=== PATIENT | male | born 1950 | race Caucasian/White ===

== ENCOUNTER 2016-10-18 11:44 | Outpatient (CLI) | payer MEDICARE, OTHER | END 2016-10-18 11:45 | disposition home or self-care (01) | LOC: LAB 11:44 | PROVIDERS: ATTEND Internal Medicine | DX: R76.8 Other specified abnormal immunological findings in serum (principal) | CPT/HCPCS: 36415; 86803 ==

== ENCOUNTER 2016-11-26 08:09 | Day surgery (SDC) | payer MEDICARE, OTHER ==
[2016-11-26] MEDS ORDERED: MIDAZOLAM 2 MG/2 ML VIAL IVP ONE (09:39)
[2016-11-26] MEDS ORDERED: fentaNYL 100 MCG/2 ML VIAL IVP ONE (09:39)
[2016-11-26] MEDS ORDERED: LACTATED RINGERS 1,000 ML IV ONE ×3 (09:56→10:25)
[2016-11-26 11:47] VITALS: BP 107/82
== END 2016-11-26 08:10 | disposition home or self-care (01) ==
LOC: SDS 08:09
PROVIDERS: ATTEND Surgery
PROC: 0DBM8ZX Excision of Descending Colon, Via Natural or Artificial Opening Endoscopic, Diagnostic (ICD-10-PCS; principal; 2016-11-26 09:15)
PROC: 0DB58ZX Excision of Esophagus, Via Natural or Artificial Opening Endoscopic, Diagnostic (ICD-10-PCS; 2016-11-26 09:15)
DX: K29.70 Gastritis, unspecified, without bleeding (principal); K44.9 Diaphragmatic hernia without obstruction or gangrene; K57.30 Diverticulosis of large intestine without perforation or abscess without bleeding; D12.4 Benign neoplasm of descending colon; Z87.891 Personal history of nicotine dependence
CPT/HCPCS: 43239; 45380; J7120

== ENCOUNTER 2022-06-05 13:22 | Outpatient (CLI) | payer MEDICARE, OTHER ==
--- NOTE | 2022-06-05 15:06 | XRAY Report ---
PROCEDURE: Knee Standing BILAT INDICATIONS: KNEE TECHNIQUE: 2 views of the right knee, and 2 views of the left knee. COMPARISON: None. FINDINGS: Bones: No acute fracture or dislocation. There is moderate right and severe left femorotibial compar tment narrowing. No suspicious bony lesions. Medial compartment osteophytes are present, slightly lar ariela on the left than on the right. Soft tissues: There is chondrocalcinosis bilaterally. IMPRESSION: Moderate bilateral osteoarthritis, slightly more severe on the left. Reviewed by: Emilie Guardado MD on 06/05/2022 3:05 PM PDT Approved by: Emilie Guardado MD on 06/05/2022 3:05 PM PDT Station ID: [id number]
== END 2022-06-05 13:23 | disposition home or self-care (01) ==
LOC: DI 13:22
PROVIDERS: ATTEND Physician Assistant
DX: M17.0 Bilateral primary osteoarthritis of knee (principal)

== ENCOUNTER 2024-03-02 09:33 | Observation (INO) ==
[2024-03-02 10:56] LABS: BASOPHILS # (AUTO) 0.1 10^3/uL (0.0-0.1); BASOPHILS % (AUTO) 0.6 %; EOSINOPHILS # (AUTO) 0.2 10^3/uL (0.0-0.7); HCT - HEMATOCRIT 46.8 % (42.0-52.0); HGB - HEMOGLOBIN 15.7 g/dL (14.0-18.0); LYMPHOCYTES # (AUTO) 1.9 10^3/uL (1.5-3.5); LYMPHOCYTES % (AUTO) 20.2 %; MEAN CORPUSCULAR HEMOGLOBIN 31.2 pg (27.0-31.0); MEAN CORPUSCULAR HGB CONC 33.5 g/dL (32.0-36.0); MEAN CORPUSCULAR VOLUME 92.9 fL (80.0-94.0); MEAN PLATELET VOLUME 9.9 fL (7.4-11.4); MONOCYTES # (AUTO) 0.6 10^3/uL (0.0-1.0); MONOCYTES % (AUTO) 6.9 %; NEUTROPHILS # (AUTO) 6.5 10^3/uL (1.5-6.6); NEUTROPHILS % (AUTO) 70.1 %; PLT - PLATELET COUNT 322 10^3/uL (130-450); RED BLOOD COUNT 5.04 10^6/uL (4.70-6.10); RED CELL DISTRIBUTION WIDTH 14.9 % (12.0-15.0); WHITE BLOOD COUNT 9.3 x10^3/uL (4.8-10.8)
[2024-03-02 11:10] LABS: ALBUMIN 4.6 g/dL (3.2-5.5); ALBUMIN/GLOBULIN RATIO 1.2 (1.0-2.2); BILIRUBIN,TOTAL 0.6 mg/dL (0.2-1.0); CALCIUM 9.8 mg/dL (8.5-10.3); CREATININE 0.9 mg/dL (0.6-1.3); MAGNESIUM 2.2 mg/dL (1.7-2.3); POTASSIUM 3.9 mmol/L (3.5-4.5); TOTAL PROTEIN 8.3 g/dL (6.4-8.9)
[2024-03-02 11:24] LABS: THYROID STIMULATING HORMONE 1.93 uIU/mL (0.34-5.60)
--- NOTE | 2024-03-02 11:31 | ED Physician Documentation ---
PD HPI DYSPNEA Stated complaint Stated Complaint: HIGH BP Chief complaint Chief Complaint: Cardiac History obtained from History obtained from: Patient and Family History of Present Illness Timing - onset: How many days ago (He checks his blood pressure once or twice daily and has noted heart rate being mild tachycardia with irregularity over the last 5 or 6 days.) Timing - onset during: Rest (he has noted the faster HR and irregular when rested, as that is when took BP. But he did feel more easily fatigued with activity the past 5-6 days. ) Timing - duration: Days Timing - details: Gradual onset, Still present and Waxing and waning (HR faster at times, up to 150-160 at times, but mostly in the 100-130 range. ) Inciting event(s): No URI Improved by: Rest Worsened by: Exertion Associated symptoms: No Fever, Cough, Wheezing or Bilateral edema Similar symptoms before: Has not had sx before Recently seen: Not recently seen Review of Systems Constitutional Denies: Fever, Chills or Weight loss Meds/Allgy Home Medications Ambulatory Orders Medication Instructions Recorded Confirmed hydrochlorothiazide 12.5 mg tablet 12.5 mg PO DAILY PRN diastolic >100 03/02/24 03/02/24 triamcinolone acetonide 55 mcg 1 spray intranasal QPM 03/02/24 03/02/24 nasal spray aerosol (24 Hour Nasal Allergy) Allergies Allergies Allergy/AdvReac Type Severity Reaction Status Date / Time Sulfa (Sulfonamide Allergy Mild Nausea Verified 03/02/24 10:40 Antibiotics) PFS Social History Social History (Updated 03/02/24 @ 19:33 by Nicko Becerra MD) Smoking Status: Former smoker If you are a former smoker, when did you quit? (Date/Year): 2004 Do you dip or chew tobacco?: No Relationship: Level: Independent Do you feel safe in your home environment?: Yes Suffered physical, verbal, emotional, or financial abuse?: No ETOH Use: Frequency: Daily Number of Amount/day: 5 ETOH Use Details: he states he drinks "probably more than I should" Substance Use: cannabis (any form) POLST Patient has POLST: No Exam Constitutional normal general appearance, no apparent distress and average body habitus HENMT oropharynx normal Neck/C-Spine supple and thyroid normal Lymph no lymphadenopathy noted Chest inspection of chest normal Respiratory breath sounds equal bilaterally, normal respiratory effort and wheezing noted (expiratory wheezes) (mild scattered) Cardiovascular heart rate abnormal (tachycardic), rhythm abnormal (irregular), no rub, no murmur, no bruits noted and no edema Gastrointestinal abdomen soft to palpation and nontender to palpation Extremities no tenderness Neurology no focal motor deficit noted and no sensory deficits noted Psychiatry mental status grossly normal, oriented x3, thought process normal and cooperative Skin skin color normal Results Vitals Vitals: Vital Signs - 24 hr 03/02/24 10:00 03/02/24 10:40 03/02/24 11:33 Temperature 36.5 C Pulse Rate 61 83 93 Respiratory Rate 18 20 20 Blood Pressure 148/99 H 143/84 H 132/81 H O2 Saturation 100 98 98 O2 Source Room air Room air Room air Pain Intensity 3 0 0 03/02/24 13:00 Temperature Pulse Rate 68 Respiratory Rate 20 Blood Pressure 132/81 H O2 Saturation 94 O2 Source Room air Pain Intensity 0 Oxygen O2 Source Room air EKG (time done) 10:11: EKG releavant findings:: EKG personally interpreted by author of this note. Relevant findings are: Rate: Rate (enter#) (129) Rhythm: Atrial fibrillation [place]: Normal Ischemia: T wave inversion (likely rate related ischemia.) and Non specific changes; No ST elevation c/w repol Compare to prior EKG: Old EKG unavailable Labs Labs: Laboratory Tests 03/02/24 10:40 WBC 9.3 RBC 5.04 Hgb 15.7 Hct 46.8 MCV 92.9 MCH 31.2 H MCHC 33.5 RDW 14.9 Plt Count 322 MPV 9.9 Neut # (Auto) 6.5 Lymph # (Auto) 1.9 [place] # (Auto) 0.6 Eos # (Auto) 0.2 Baso # (Auto) 0.1 Absolute Nucleated RBC 0.00 Nucleated RBC % 0.0 Sodium 137 Potassium 3.9 Chloride 102 Carbon Dioxide 23 Anion Gap 12.0 BUN 19 Creatinine 0.9 Estimated GFR (MDRD) 82 L Glucose 119 H Calcium 9.8 Magnesium 2.2 Total Bilirubin 0.6 AST 17 ALT 11 Alkaline Phosphatase 99 Troponin I High Sens 39.7 H* B-Natriuretic Peptide 243 H Total Protein 8.3 Albumin 4.6 Globulin 3.7 Albumin/Globulin Ratio 1.2 Lipase 24 TSH 1.93 Ethyl Alcohol < 10.0 Rads (name of study) chest xray: Relevant Findings:: Final report received and EMP independent interpretation of test (mild hyperinflation and mildly enlarged heart size. Large solid mass right upper lobe. Will get CT. ) PD Medical Decision Making ED course Complexity details: reviewed results (lytes and renal function, TSH are okay. Trop minimally elevated. ), re-evaluated patient (Pt has log of HR and BP over the past week and it shows tachycardia often and irregularlity. Presume 5-6 days of atrial fib, negating desire for cardioversion. Rate controlled with IV metoprolol. However needs further eval of heart and also right lung mass. Presume CT chest and ECHO. Also PO doses.), considered differential (new onset atrial fib over past several days. History of regular alcohol. That might be the irritant. No history of ischemic heart disease known. Prior smoker I believe. Work toward rate control and further heart eval. Presume DOAC until further arrangement for lung biopsy. ) and d/w patient Discharge Plan Discharge Patient Disposition: ED Place in Observation Condition: Stable Clinical Impression: New onset atrial fibrillation, Atrial fibrillation with rapid ventricular response, Mass of right lung Interventions: ED Admission Assessment Last Done: 03/02/24 14:43
[2024-03-02] MEDS: METOPROLOL 5 MG/5 ML VIAL IVP STA (11:40)
--- NOTE | 2024-03-02 11:47 | XRAY Report ---
PROCEDURE: XR Chest 1V INDICATIONS: new atrial fib TECHNIQUE: One view of the chest was acquired. COMPARISON: None. FINDINGS: Surgical changes and devices: None. Lungs and pleura: Masslike lesion in the right upper lobe. Mediastinum: Mediastinal contours appear normal. Heart size is normal. Bones and chest wall: No suspicious bony lesions. Overlying soft tissues appear unremarkable. IMPRESSION: Masslike lesion in the right upper lobe, concerning for malignancy. Differential includes infection. Recommend chest CT with contrast for complete characterization. Reviewed by: Emilio Choi MD on 03/02/2024 11:45 AM [facility] Approved by: Emilio Choi MD on 03/02/2024 11:45 AM [facility] Station ID: [id number]
[2024-03-02] MEDS: METOPROLOL SUCCINATE 25 MG TABLET PO SCH (13:13)
[2024-03-02] MEDS ORDERED: ACETAMINOPHEN 325 MG TABLET PO PRN (14:43)
[2024-03-02] MEDS ORDERED: METOPROLOL 5 MG/5 ML VIAL IVP PRN (14:43)
[2024-03-02] MEDS ORDERED: SODIUM CHLORIDE FLUSH 0.9% 10 ML SYRINGE IVP PRN (14:43)
[2024-03-02] MEDS ORDERED: ONDANSETRON ODT 4 MG TABLET TL PRN (14:43)
--- NOTE | 2024-03-02 14:43 | HISTORY & PHYSICAL EXAMINATION ---
Chief Complaint Chief Complaint Chief Complaint: feels bad History of Present Illness History Obtained From Records Reviewed: none available History obtained from: Patient and spouse History of Present Illness HPI Comment/Other: 73-year-old male who presented to the emergency department this morning complaining of feeling poorly. He has been taking his blood pressure at home for quite some time ET tube at the request of his primary care physician. He stated that he has been feeling badly over the last 5 to 6 days. He occasionally has palpitations and just generally has been feeling a lack of energy. He has noted hypertension on his blood pressure readings up to the 170s as well as tachycardia today with a heart rate around 160. He has had a primary care doctor since last summer. He states his potassium has been up and his blood pressure has been up for that time. He has been taking hydrochlorothiazide for blood pressure. 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 And states he would never want to have cardio pulmonary resuscitation. His is his surrogate decision-maker. He has severe environmental allergies that are getting worse as the years go by. He takes nasal steroid for this and feels like he is constantly having a throat clearing cough. He has not been on any SAI inhibitor's for his blood pressure. He states that he occasionally coughs up yosvany sputum and 1 time coughed up a blood clot. He attributes this to his sinuses. He has not been running any fevers he has not had any weight loss. He states he is a very poor sleeper and uses marijuana every day either edibles or vaping "green bud" for sleep and relaxation. He has been retired for 10 years which is when [place] drinks 2 to 3 glasses of wine +1 shot of whiskey every night and has not smoked for many many years he denies any history of alcohol withdrawal but it has been quite sometime since he is gone any amount of time without a drink. Meds/Allgy Home Medications Ambulatory Orders Medication Instructions Recorded Confirmed hydrochlorothiazide 12.5 mg tablet 12.5 mg PO DAILY PRN diastolic >100 03/02/24 03/02/24 triamcinolone acetonide 55 mcg 1 spray intranasal QPM 03/02/24 03/02/24 nasal spray aerosol (24 Hour Nasal Allergy) Allergies Allergies Allergy/AdvReac Type Severity Reaction Status Date / Time Sulfa (Sulfonamide Allergy Mild Nausea Verified 03/02/24 10:40 Antibiotics) PFSH Social History Social History (Updated 03/02/24 @ 19:33 by Nicko Becerra MD) Smoking Status: Former smoker If you are a former smoker, when did you quit? (Date/Year): 2004 Do you dip or chew tobacco?: No Relationship: Level: Independent Do you feel safe in your home environment?: Yes Suffered physical, verbal, emotional, or financial abuse?: No ETOH Use: Frequency: Daily Number of Amount/day: 5 ETOH Use Details: he states he drinks "probably more than I should" Substance Use: cannabis (any form) POLST Patient has POLST: No POLST Status: DNR Review of Systems Status of ROS: 10 or more systems reviewed and unremarkable except as noted in history and below Constitutional Reports: Fatigue; Denies: Fever, Chills or Malaise Eyes Denies: Vision loss or Eye discharge Ears, nose, mouth, and throat Reports: Nasal congestion and Post nasal drip; Denies: Hearing aids, Swelling of lips/tongue or Neck pain Cardiovascular Reports: Irregular heart rate and palpitations; Denies: chest pain, edema, swelling of feet/ankles, Syncope, lightheadedness or shortness of breath with exertion Respiratory Reports: Cough, Sputum production and Coughing up blood; Denies: Shortness of breath Gastrointestinal Denies: Abdominal pain Musculoskeletal Denies: Neck pain Integumentary/Breast Denies: Rash, Itching or Dryness Neurological Denies: General weakness or Focal weakness Endocrine Reports: Fatigue Prior Level of Functionality: Independently ambulatory drives takes care of his home with the assistance of his . No deficits in function Exam Constitutional normal general appearance and no apparent distress [facility] normocephalic, head/scalp atraumatic, hearing grossly normal bilaterally, external ears normal, nasal mucous membranes normal and dentition normal Eyes PERRL and conjunctivae normal Neck/C-Spine visual inspection normal Lymph no lymphadenopathy noted Chest inspection of chest normal and palpation of chest normal Respiratory breath sounds equal bilaterally, normal respiratory effort and clear to auscultation bilaterally Cardiovascular normal heart rate noted (has previously been tachy. a fib with rate control on monitor. ) and peripheral pulses 2+ throughout Gastrointestinal abdomen normal to inspection and abdomen soft to palpation Extremities normal to inspection and normal to palpation Neurology e commerce specialist II-XII intact, no movement abnormality noted, no focal motor deficit noted, no sensory deficits noted, gait normal and GCS 15 Psychiatry mental status grossly normal, oriented x3 and thought process normal Skin skin color normal Conclusion/Plan Problem List (1) Atrial fibrillation with rapid ventricular response: Plan: Atrial fibrillation with RVR onset unclear timeframe but definitely has had some tachycardia as he has been checking his blood pressures over the last week. Sounds like the patient has a long history of hypertension which has been untreated until several months ago. He is not having any lower extremity edema he is not having any paroxysmal nocturnal dyspnea. He is not having any decreased exercise tolerance he does not have any chest pain. His troponin was 39.7 on admission. [id number] score is 2 points indicating an ischemic stroke rate of 2.9%. Anticoagulation is recommended. I discussed apixaban with the patient. He is amenable and I will start this therapy.His has bled score is 3 points. This shows a risk of 5.8% in 1 validation study and 3.72 bleeds per 100 patient years and another validation study. This makes his has bled score slightly higher than his [id number] score. Will need to discuss reducing alcohol consumption with this patient as this could change his risk for bleeding on anticoagulation could also discuss not taking apixaban. He has been given 25 mg of metoprolol tartrate in the emergency department. His rate is come down to below 100. He is still showing atrial fibrillation on the monitor. I have started him on metoprolol tartrate 25 mg twice daily and will give 5 mg of metoprolol IV every 6 hours as needed heart rate sustained greater than 120. I have ordered echocardiogram. Patient was discussed with Dr. Becerra decision was made to admit the patient for his atrial fibrillation with RVR. Will admit him to observation status. (2) Mass of right lung: Plan: Chest x-ray shows a masslike lesion in the right upper lobe that is concerning for malignancy. Patient has a remote smoking history quit in 2004 according to the medical record. 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 This never had TB infection that is known. He does have occasional intermittent hemoptysis which is somewhat concerning. I am sending a Quantiferon gold to rule out TB infection. I have ordered a CT of the chest with IV contrast to further characterize this mass.CT chest is return later this evening. This mass is very concerning for malignancy. Is a large right upper lobe mass with pathologic right hilar mediastinal lymph adenopathy that is concerning for malignancy. He will need likely endobronchial biopsy. This will require referral for pulmonology.Patient is asleep at the time that I am receiving this report. This will need to be discussed with him in the morning. (3) Environmental allergies: Plan: Longstanding history of environmental allergies patient says he feels like he is constantly clearing his throat. The symptoms seem to get be getting worse over time without any relief. He does use nasal steroid which we will continue while he is inpatient. Plan I have spent 85 minutes in the care of this patient today. This includes time [id number], review and ordering of diagnostic imaging and laboratory studies and consultation with other providers.. Monitoring the patient's signs symptoms, evaluation of medication effectiveness and patient's response to treatment. Lab Results Lab results reviewed: Yes 03/02/24 10:40 03/02/24 10:40 Diagnostic Imaging Results Diagnostic Imaging Results: positive Final report reviewed Diagnostic Imaging Results Comments: Right hilar mass concerning for malignancy Chest x-ray significant for right hilar mass EKG Results EKG Interpreted Independently: Yes EKG Comparison: Changed from prior EKG Core Measures Anticipated LOS I expect patient to be DC'd or transferred within 96 hours.: Yes Issues Hospital Issues and Management Plan: Atrial fibrillation with RVR. Controlled with metoprolol in the emergency department. Will admit for rate control, telemetry monitoring, echocardiogram. Also incidentally has a right upper lobe mass seen on chest x-ray. Patient gives a history of hemoptysis intermittently for quite some time. I am going to check a CT of the chest with IV contrast. He has normal renal function DVT/VTE - Prophylaxis VTE/DVT Device ordered at admit?: Yes VTE/DVT Prophylaxis med ordered at admit?: Yes
--- NOTE | 2024-03-02 15:54 | ADVANCE CARE PLANNING NOTE ---
Advance Care Planning Planning Encounter Date: 03/02/24 Time: 15:30 Purpose: Patient has requested it. Parties in Attendance: Patient
[2024-03-02] MEDS ORDERED: iohexoL-300 100 ML VIAL ONE (16:01)
[2024-03-02] MEDS: iohexoL-300 100 ML VIAL IVP ONE (16:12)
--- NOTE | 2024-03-02 16:37 | PHARMACY PROGRESS NOTE ---
Best Possible Medication History Admit Date and Time: 03/02/24 [id number] Home Medications Medication Instructions Recorded Confirmed Type hydrochlorothiazide 12.5 mg tablet 12.5 mg PO DAILY PRN diastolic >100 03/02/24 03/02/24 History triamcinolone acetonide 55 mcg 1 spray intranasal QPM 03/02/24 03/02/24 History nasal spray aerosol (24 Hour Nasal Allergy) Processed by: Pharmacy (Medication Reconciliation completed by Bog WorkerEliot) Medications reviewed in ED?: No Medication History completed: Yes Patient Interview: Completed Secondary Source(s): Insurance records [facility] Statement: As the person ultimately responsible for medication therapy, providers are able to order a medication from an existing home medication list in [facility] via the "Reconcile Routine" prior to Confirmation of that medication by desktop support manager. Such practice is discouraged except when the physician, in their clinical judgment, deems that a medical need exists for a medication without regard to previous use.
--- NOTE | 2024-03-02 17:26 | CT Report ---
PROCEDURE: CT Chest W INDICATIONS: RUL mass, hemoptysis CONTRAST: 100 ML OMNI TECHNIQUE: After the administration of intravenous contrast, a CT scan of the chest was performed. Images were recorded and evaluated at appropriate window settings. Reformats: axial MIP of the chest, coronal and sagittal. For radiation dose reduction, the following was used: automated exposure control, adjustme nt of mA and/or kV according to patient size. COMPARISON: Chest x-ray performed the same day FINDINGS: Image quality: Diagnostic. Chest wall and lower neck: No thyroid nodule which requires sonographic follow up. No chest wall mass . No axillary or supraclavicular adenopathy by size. Lungs and pleura: Round, right upper lobe lung mass measures 8.1 x 7.3 x 8.8 cm there is mild periphe ral groundglass opacity, presumably postobstructive pneumonitis. Splaying and displacement of broncho vascular structures and major fissure. No satellite nodules. No other lung nodule or mass. No pleural effusion Mediastinum: Heart size is enlarged. Moderate to heavy coronary artery calcification. No pericardial effusion. No large vessel abnormality. Several nonenlarged mediastinal lymph nodes. Enlarged, patholo gic lymph nodes present just below the aortic arch level in the right paratracheal region and measure about 1.6 cm short axis. Largest right hilar lymph node measures 3.3 cm short axis. No significant l eft mediastinal or hilar adenopathy. No anterior or posterior mediastinal mass. Normal esophagus with out hiatal hernia Bones: No aggressive osseous abnormality. Upper Abdomen: Punctate, calcified, dependently layering gallstones. No visible adrenal, liver lesion , or adenopathy. IMPRESSION: Large right upper lobe lung mass and pathologic right hilar and mediastinal adenopathy concerning for malignancy. An endobronchial biopsy is recommended. No evidence of disease in the contralateral lung. Moderate to heavy coronary artery calcification. Cholelithiasis. Reviewed by: Gianna Cruz MD on 03/02/2024 5:02 PM PST Approved by: Gianna Cruz MD on 03/02/2024 5:02 PM PST Station ID: [id number]
[2024-03-02] MEDS: METOPROLOL TARTRATE 25 MG TABLET PO SCH (20:49)
[2024-03-02] MEDS: APIXABAN 5 MG TABLET PO SCH (20:49)
[2024-03-02] MEDS: SODIUM CHLORIDE FLUSH 0.9% 10 ML SYRINGE IVP SCH (20:51)
[2024-03-03 05:53] LABS: BASOPHILS # (AUTO) 0.1 10^3/uL (0.0-0.1); BASOPHILS % (AUTO) 0.7 %; EOSINOPHILS # (AUTO) 0.2 10^3/uL (0.0-0.7); EOSINOPHILS % (AUTO) 2.7 %; HCT - HEMATOCRIT 42.6 % (42.0-52.0); HGB - HEMOGLOBIN 13.8 g/dL (14.0-18.0); LYMPHOCYTES # (AUTO) 2.1 10^3/uL (1.5-3.5); LYMPHOCYTES % (AUTO) 23.1 %; MEAN CORPUSCULAR HGB CONC 32.4 g/dL (32.0-36.0); MEAN CORPUSCULAR VOLUME 95.7 fL (80.0-94.0); MEAN PLATELET VOLUME 9.8 fL (7.4-11.4); MONOCYTES # (AUTO) 0.7 10^3/uL (0.0-1.0); MONOCYTES % (AUTO) 7.9 %; NEUTROPHILS # (AUTO) 5.8 10^3/uL (1.5-6.6); NEUTROPHILS % (AUTO) 65.3 %; PLT - PLATELET COUNT 271 10^3/uL (130-450); RED BLOOD COUNT 4.45 10^6/uL (4.70-6.10); RED CELL DISTRIBUTION WIDTH 15.1 % (12.0-15.0); WHITE BLOOD COUNT 8.9 x10^3/uL (4.8-10.8)
[2024-03-03 06:10] LABS: CALCIUM 9.2 mg/dL (8.5-10.3); CREATININE 0.8 mg/dL (0.6-1.3)
[2024-03-03] MEDS: FLUTICASONE NASAL SPRAY NAS SCH (08:00)
[2024-03-03] MEDS ORDERED: [UNRECOGNIZED DRUG - REMARK] NAS SCH (09:00)
--- NOTE | 2024-03-03 12:28 | ADVANCE CARE PLANNING NOTE ---
Advance Care Planning Planning Encounter Date: 03/03/24 Time: 12:21 Purpose: To determine long-term course of care and patient with new diagnosis of lung cancer Parties in Attendance: Patient Decisional Capacity of the Patient: Full Diagnosis for Encounter (1) Atrial fibrillation with rapid ventricular response: Summary: Rate has been controlled with p.o. 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 He enjoys gardening, and visiting with friends. He states that he is still strong enough to perform these activities. He lives with his . He was feeling poorly, so he presented to The ED. 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 Full discussion of advance care planning was deferred until results from his CT scan came back Objective/Medical Story: He was Placed in observation here for atrial fibrillation with RVR. That has resolved. While performing the workup for his atrial fibrillation, his chest x- ray was concerning for a mass. CT of the chest was performed which showed a large right upper lobe lung mass with right hilar and mediastinal adenopathy. Goals of Care: His goals are to maximize his time at full function. He understands that next steps involve obtaining biopsy of this mass and follow-up with oncology for prognosis. He is looking forward to going home to spend more time with his family. Plan: He is medically clear for discharge today. He reports feeling depressed, and that he will need time to mentally process the news. He lives with his , no concerns over support systems at home. He will need follow-up with his primary care physician to schedule endobronchial ultrasound for biopsy of this mass and then follow-up with oncology Code Status: Do Not Attempt Resuscitation Time spent on advance care plannin
[2024-03-03 13:44] VITALS: BP 117/83; TEMP 97.9; O2SAT 94
--- NOTE | 2024-03-03 15:09 | Discharge Summary ---
Discharge Summary Admit Date: 03/02/24 Discharge Date: 03/03/24 Discharging Provider: Austin Trimble NP Primary Care Provider: Bianca Swenson Code Status: Do Not Attempt Resuscitation DIAGNOSES Admission Diagnoses: Atrial fibrillation with RVR Cavitating mass in the right upper lung lobe Environmental allergies Discharge Diagnoses with Status of Each Condition: Atrial fibrillation with RVRRVR resolved, atrial fibrillation chronic Cavitating mass in right upper lung lobe Active Environmental allergieschronic HPI History of Present Illness: 73-year-old male who presented to the emergency department this morning complaining of feeling poorly. He has been taking his blood pressure at home for quite some time ET tube at the request of his primary care physician. He stated that he has been feeling badly over the last 5 to 6 days. He occasionally has palpitations and just generally has been feeling a lack of energy. He has noted hypertension on his blood pressure readings up to the 170s as well as tachycardia today with a heart rate around 160. He has had a primary care doctor since last summer. He states his potassium has been up and his blood pressure has been up for that time. He has been taking hydrochlorothiazide for blood pressure. 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 And states he would never want to have cardio pulmonary resuscitation. His is his surrogate decision-maker. He has severe environmental allergies that are getting worse as the years go by. He takes nasal steroid for this and feels like he is constantly having a throat clearing cough. He has not been on any SAI inhibitor's for his blood pressure. He states that he occasionally coughs up yosvany sputum and 1 time coughed up a blood clot. He attributes this to his sinuses. He has not been running any fevers he has not had any weight loss. He states he is a very poor sleeper and uses marijuana every day either edibles or vaping "green bud" for sleep and relaxation. He has been retired for 10 years which is when he moved to the [place] drinks 2 to 3 glasses of wine +1 shot of whiskey every night and has not smoked for many many years he denies any history of alcohol withdrawal but it has been quite sometime since he is gone any amount of time without a drink. HOSPITAL COURSE Hospital Course: Patient was placed observation, an echocardiogram was performed, read pending. Rate control was obtained with metoprolol. He underwent CT chest which was positive for a lung mass in the right upper lobe with associated lymphadenopathy on the ipsilateral side. Today, he is rate controlled on p.o. medication, he no longer meets criteria to stay in the hospital Follow-up: He has been instructed to follow-up with his PCP within 1 to 2 weeks. He will need endobronchial ultrasound biopsy of the mass in his lungs, and then subsequent oncology referral. He has been instructed to check his blood pressure and heart rate regularly and keep a record to show to his primary care provider ALLERGIES Allergies Allergy/AdvReac Type Severity Reaction Status Date / Time Sulfa (Sulfonamide Allergy Mild Nausea Verified 03/02/24 10:40 Antibiotics) MEDICATIONS Ambulatory Orders Medication Instructions Recorded Confirmed hydrochlorothiazide 12.5 mg tablet 12.5 mg PO DAILY PRN diastolic >100 03/02/24 03/02/24 triamcinolone acetonide 55 mcg 1 spray intranasal QPM 03/02/24 03/02/24 nasal spray aerosol (24 Hour Nasal Allergy) apixaban 5 mg tablet (Eliquis) 5 mg PO BID 30 days #60 tabs 03/03/24 fluticasone propionate 50 2 spray intranasal DAILY 30 days 03/03/24 mcg/actuation nasal #16 grams spray,suspension metoprolol tartrate 25 mg tablet 12.5 mg (1/2 x 25 mg) PO BID 30 03/03/24 days #30 tabs PHYSICAL EXAM AT DISCHARGE General Appearance: positive No acute distress and Alert Eyes Bilateral: positive Normal inspection and PERRL ENT: positive No signs of dehydration Neck: positive No JVD Respiratory: positive Chest non-tender and No respiratory distress Cardiovascular: positive Regular rate & rhythm and No murmur Peripheral Pulses: positive 2+ Abdomen: positive Non-tender Back: positive Nml inspection Skin: positive Color nml Extremities: positive Non-tender Neurologic/Psychiatric: positive Oriented x3 LABS 03/03/24 05:31 03/03/24 05:31 FOLLOW UP Follow Up: With PCP regarding ongoing management of atrial fibrillation, and to schedule EBUS TIME SPENT Time Spent in Discharge (Minutes): 35 Discharge Plan Discharge Patient Disposition: Home, Self Care Condition: Stable Medically Cleared Date:: 03/03/24 Prescriptions: New Eliquis 5 mg Tablet 5 mg PO BID 30 Days Qty: 60 0RF fluticasone propionate 50 mcg/actuation [place],Suspension 2 spray intranasal DAILY 30 Days Qty: 16 0RF metoprolol tartrate 25 mg tablet 12.5 mg PO BID 30 Days Qty: 30 0RF Continued hydrochlorothiazide 12.5 mg tablet 12.5 mg PO DAILY PRN (Reason: diastolic >100) triamcinolone acetonide [24 Hour Nasal Allergy] 55 mcg aerosol,spray 1 spray intranasal QPM Rx Instructions: administer into each nostril Diet: Cardiac Health Concerns: You are a 73-year-old male with past medical history significant for hypertension who came in because you are feeling poorly. You were found to be in atrial fibrillation with rapid ventricular response. The top 2 chambers of your heart are firing erratically and and efficiently, and the erratic electrical activity because you are pulse to increase to dangerously high levels. This was managed with a medication called metoprolol, which slows down conduction from the AV node. This atrial fibrillation puts you at risk for stroke, so I am placing you on Eliquis 5 mg twice daily. As part of your workup, you had a chest x-ray that showed concern for a mass. You underwent CT of the chest which confirmed this. There is nothing that I would do for this in the hospital setting, but I highly suggest that you follow- up with your primary care physician to schedule an endobronchial ultrasound so that we can biopsy this mass. Perform all activities of daily living as he did before coming into the hospital Follow-up with PCP in 1 to 2 weeks Check your blood pressure and heart rate at least daily if not twice daily. Keep a record of this and bring it to your PCP appointment Remember that while the Eliquis does not make you more likely to bleed, it will make any bleeding last longer. Also your metoprolol may decrease your blood pressure, so be careful when getting up quickly Print Language: Turkish Patient Instructions: Atrial Fibrillation Dc Stand Alone Forms: PCP List
== END 2024-03-03 15:31 | disposition home or self-care (01) ==
LOC: ED 09:33 → MS2 09:33
PROVIDERS: ADMIT Physician Assistant Medical; ATTEND Physician Assistant Medical
DX: I10 Essential (primary) hypertension; Z66 Do not resuscitate; T78.49XA Other allergy, initial encounter; R91.8 Other nonspecific abnormal finding of lung field; I48.20 Chronic atrial fibrillation, unspecified; R59.0 Localized enlarged lymph nodes; Z87.891 Personal history of nicotine dependence

== ENCOUNTER 2024-05-09 14:54 | Inpatient (IN) ==
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
[2024-05-09] MEDS ORDERED: iohexoL-300 100 ML VIAL ONE (15:20)
[2024-05-09] MEDS: iohexoL-300 100 ML VIAL IVP ONE (15:22)
--- NOTE | 2024-05-09 15:23 | CT Report ---
PROCEDURE: CT Head W/O Stroke Protocol INDICATIONS: aphasia and facial droop, onset 11 am TECHNIQUE: Noncontrast 4.5 mm thick angled axial sections acquired from the foramen magnum to the vertex, with c oronal reformats. For radiation dose reduction, the following was used: automated exposure control, adjustment of mA and/or kV according to patient size. COMPARISON: None. FINDINGS: Image quality: Excellent. CSF spaces: Basal cisterns are patent. No extra-axial fluid collections. Ventricles are normal in size and shape. Brain: No midline shift. No intracranial masses or hemorrhage. Holliday-white matter interface is norm al. Skull and face: Calvarium and visualized facial bones are intact, without suspicious lesions. Sinuses: Visualized sinuses and mastoids are clear. IMPRESSION: No acute intracranial pathology. Findings were discussed with ordering provider, Dr Becerra, on 05/09/2024 at 2:22 PM. This study fulfills neurological imaging criteria for inclusion or exclusion of acute stroke therapie s based on available published neurological imaging guidelines. Reviewed by: Jamar Mcclain MD on 05/09/2024 2:22 PM AKDT Approved by: Jamar Mcclain MD on 05/09/2024 2:22 PM AKDT Station ID: [id number]
[2024-05-09 15:29] LABS: BASOPHILS % (AUTO) 0.2 %; EOSINOPHILS # (AUTO) 0.2 10^3/uL (0.0-0.7); EOSINOPHILS % (AUTO) 1.7 %; HGB - HEMOGLOBIN 14.4 g/dL (14.0-18.0); LYMPHOCYTES # (AUTO) 1.1 10^3/uL (1.5-3.5); LYMPHOCYTES % (AUTO) 11.5 %; MEAN CORPUSCULAR HEMOGLOBIN 29.9 pg (27.0-31.0); MEAN CORPUSCULAR HGB CONC 33.5 g/dL (32.0-36.0); MEAN CORPUSCULAR VOLUME 89.4 fL (80.0-94.0); MEAN PLATELET VOLUME 9.9 fL (7.4-11.4); MONOCYTES % (AUTO) 0.3 %; NEUTROPHILS % (AUTO) 84.6 %; PLT - PLATELET COUNT 299 10^3/uL (130-450); RED BLOOD COUNT 4.81 10^6/uL (4.70-6.10); RED CELL DISTRIBUTION WIDTH 14.7 % (12.0-15.0); WHITE BLOOD COUNT 9.5 x10^3/uL (4.8-10.8)
[2024-05-09 15:44] LABS: ALBUMIN 3.7 g/dL (3.2-5.5); ALBUMIN/GLOBULIN RATIO 1.2 (1.0-2.2); BILIRUBIN,TOTAL 0.9 mg/dL (0.2-1.0); CALCIUM 8.8 mg/dL (8.5-10.3); CREATININE 0.8 mg/dL (0.6-1.3); POTASSIUM 3.4 mmol/L (3.5-4.5); TOTAL PROTEIN 6.7 g/dL (6.4-8.9)
--- NOTE | 2024-05-09 15:46 | CT Report ---
PROCEDURE: CT Angio Head/Neck INDICATIONS: aphasia and facial droop, onset 11 am TECHNIQUE: After the administration of intravenous contrast, 1 mm thick sections acquired from the aortic arch t hrough the [place] of [place]. 3-dimensional uzawwsv-ueoovvpwa-scbudodqtm (MIP) and/or volume renderin g reformats were acquired of the central intracranial vasculature and neck separately. For radiation dose reduction, the following was used: automated exposure control, adjustment of mA and/or kV acco rding to patient size. CONTRAST: 80 ML OMNI COMPARISON: CT chest with contrast 03/02/2024 FINDINGS: Image quality: Diagnostic. HEAD CT ANGIOGRAPHY: Anterior circulation: Intracranial internal carotid arteries are normal in size and flow. The flow within the paired anterior cerebral arteries is normal and symmetric. The flow within the middle cer ebral arteries is normal and symmetric. The anterior communicating artery is seen. No aneurysms are seen. Posterior circulation: Visualized portions of the vertebral arteries demonstrate normal caliber, and join to form a normal appearing basilar artery. Flow within the posterior cerebral arteries is norm al and symmetric. No aneurysms are seen. NECK CT ANGIOGRAPHY: Carotid system: The great vessels demonstrate a conventional anatomy as they arise from the aortic a rch. Moderate right common carotid bulb atherosclerosis with approximately 40% narrowing of the proxi mal internal carotid artery (5/[id number]). The left common carotid bulb atherosclerosis. The common car otid arteries demonstrate normal caliber and courses. The bifurcation regions are both widely patent . The internal carotid arteries demonstrate normal calibers and courses. Posterior circulation: The left vertebral artery is dominant and the posterior circulation. There is near complete occlusion of the right vertebral artery V4 intradural segment. The more superior extra cranial portions of both vertebral arteries also demonstrate normal courses and calibers. They join to form a normal appearing basilar artery. Soft tissues: Reidentified right upper lobe/right hilar mass (5/611). Bones: No suspicious bony lesions. Visualized cervical spine appears normally aligned. 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 2.Approximately 40% right proximal internal carotid artery stenosis. 3.Otherwise, no large vessel occlusion, dissection, or aneurysm the visualized head and neck arterial vasculature. 4.Partially identified right upper lobe/hilar mass. Please refer to the 03/02/2024 CT chest with contr ast report for further details. The estimate of stenosis included in the report of the imaging study was calculated using the NASCET method These findings were communicated to the ordering provider, Dr. Becerra, by Jamar Mcclain MD, on 04/18 at 2:44 PM. Reviewed by: Jamar Mcclain MD on 05/09/2024 2:45 PM AKDT Approved by: Jamar Mcclain MD on 05/09/2024 2:45 PM AKDT Station ID: [id number]
[2024-05-09] MEDS ORDERED: LORazepam 2 MG/ML VIAL ONE (16:03)
[2024-05-09] MEDS: diazePAM INJ 5 MG/ML SYRINGE IVP STA (16:10)
[2024-05-09] MEDS: METOPROLOL 5 MG/5 ML VIAL IVP STA (16:15)
[2024-05-09] MEDS: HALOPERIDOL 5 MG/ML VIAL IVP STA (17:03)
[2024-05-09] MEDS ORDERED: ONDANSETRON 4 MG/2 ML VIAL IVP PRN (17:43)
--- NOTE | 2024-05-09 18:00 | HISTORY & PHYSICAL EXAMINATION ---
Chief Complaint Chief Complaint Chief Complaint: weakness, confusion History of Present Illness Admitted From Admitted From:: ED History Obtained From Records Reviewed: ED records, previous Exam Limitations: pt is confused, unable to participate in meaningful neurological exam History of Present Illness HPI Comment/Other: Patient is a 73-year-old man whose PMH consists of A-fib diagnosed February 2024 on Eliquis, followed by diagnosis of lung cancer now status post chemo and radiation for 1 week who presents to the ED with a sudden onset of expressive and receptive aphasia along with right facial droop and left upper and lower extremity weakness. Patient is also altered, and agitated at the time of admission and as such history is provided primarily by ED attending Dr. Becerra as well as patient's was at the bedside at the time of admission. Reportedly, patient was in his normal state of health yesterday, as well as this morning up until approximately noon when the states they were sitting at the table reading the newspaper when suddenly he became confused, and somewhat agitated unable to speak with comprehensive language. She thought he was tired and he tried to walk himself to the bedroom but required a significant amount of assistance. He eventually made it to the bedroom and lay down in the bed, but he continued to be confused and was not clearly following instructions. At this point she became concerned and called 911. When paramedics arrived they found him to also have a right-sided facial droop, and it became more clear that he was having weakness on the left side of both upper and lower extremities. Upon arrival to the ED, the above-mentioned symptoms were noted and he was evaluated as a possible stroke. Head CT was immediately obtained and showed no acute abnormalities. He was also though noted to be in A-fib with RVR with heart rates in the 140s. He was given a single dose of metoprolol5 mg IV which initially successfully returned to his heart rate to the 80s and 90s, but shortly after return to the 130s. CT angiogram of head and neck were also obtained in the ED which showed no large vessel occlusion.Telestroke neurology consultation was obtained and the patient was not deemed to be a candidate for TNK due to both timeframe as well as anticoagulation with Eliquis. However admission for MRI and stroke workup was recommended. Given the patient's A-fib with RVR, as well as his agitation requiring bilateral upper extremity restraints, he will be admitted to the ICU. Meds/Allgy Home Medications Ambulatory Orders Medication Instructions Recorded Confirmed hydrochlorothiazide 12.5 mg tablet 12.5 mg PO DAILY PRN diastolic >100 03/02/24 03/02/24 triamcinolone acetonide 55 mcg 1 spray intranasal QPM 03/02/24 03/02/24 nasal spray aerosol (24 Hour Nasal Allergy) apixaban 5 mg tablet (Eliquis) 5 mg PO BID 30 days #60 tabs 03/03/24 fluticasone propionate 50 2 spray intranasal DAILY 30 days 03/03/24 mcg/actuation nasal #16 grams spray,suspension metoprolol tartrate 25 mg tablet 12.5 mg (1/2 x 25 mg) PO BID 30 03/03/24 days #30 tabs Allergies Allergies Allergy/AdvReac Type Severity Reaction Status Date / Time Sulfa (Sulfonamide Allergy Mild Nausea Verified 05/09/24 17:09 Antibiotics) PFSH Active Problems All Active Problems (Updated 05/09/24 @ 18:23 by Rich Reagan MD) Lung cancer (Acute) CVA (cerebral vascular accident) (Acute) Encephalopathy acute (Acute) Paroxysmal atrial fibrillation with rapid ventricular response (Acute) Acute urinary retention (Acute) Aphasia (Acute) Stroke-like symptoms (Acute) Medical History Medical History (Updated 05/09/24 @ 18:23 by Rich Reagan MD) Environmental allergies Mass of right lung New onset atrial fibrillation Social History Social History Smoking Status: Former smoker If you are a former smoker, when did you quit? (Date/Year): 2004 Do you dip or chew tobacco?: No Relationship: Spouse Level: Independent Do you feel safe in your home environment?: Yes Suffered physical, verbal, emotional, or financial abuse?: No ETOH Use: Frequency: Daily Number of Amount/day: 5 ETOH Use Details: he states he drinks "probably more than I should" Substance Use: cannabis (any form) POLST Patient has POLST: No POLST Status: DNR Review of Systems Status of ROS: unobtainable due to medical condition Prior Level of Functionality: Fully ambulatory and independent Exam Constitutional Patient is agitated, confused, difficult to redirect but does not appear to be in any distress. He has difficulty communicating but when asked if he is in pain, he says no only that "I have to pee" HENMT normocephalic and head/scalp atraumatic Eyes Ocular exam is limited due to patient participation but grossly patient does appear to have pupils equal and reactive to light and accommodation with ocular movement intact Neck/C-Spine no meningeal signs Respiratory normal respiratory effort, clear to auscultation bilaterally, no wheezes and no rales Cardiovascular Irregularly irregular with tachycardia with heart rates in the 130s, no murmurs rubs or gallops Gastrointestinal abdomen normal to inspection Genitourinary Dejesus catheter in place, collection bag nearly full with clear normal colored urine Extremities normal to inspection Neurology Patient demonstrates right-sided facial droop, left upper extremity weakness (exam is limited due to patient cooperation but handgrip is 3/5), left lower extremity difficult to evaluate given that patient is not following directions, but apparently he is able to spontaneously move both lower extremities, is not able to answer clearly questions regarding sensation to light touch. Patient is very agitated, difficult to redirect, is oriented to person, with normal ocular movements Psychiatry mental status abnormal and psychomotor abnormality noted As above patient is disoriented, agitated Skin skin color normal Conclusion/Plan Problem List (1) Encephalopathy acute: Plan: * Patient arrives confused, altered, agitated, encephalopathic likely secondary to CVA with both acute expressive and receptive aphasia * No clear evidence of infection or secondary source for encephalopathy however will check uric acid to evaluate for possible tumor lysis syndrome (patient's BUN is elevated likely secondary to acute urinary retention), will check UA to rule out UTI * Requiring 2 point soft bilateral wrist restraints as patient is trying to get out of bed and pull on Dejesus catheter and unable to redirect (2) CVA (cerebral vascular accident): Plan: * Patient with right-sided facial droop, left upper and lower extremity weakness, and acute encephalopathy suggestive of probable CVA * CT head, CT angiogram of head and neck, without acute abnormalities * Admit to ICU (see above) * Check MRI in am * PT/OT/SCHOOL TRANSPORTATION DIRECTOR evals * NPO * Hold Eliquis for risk of hemorrhagic conversion * Check Lipid and A1C in am (3) Paroxysmal atrial fibrillation with rapid ventricular response: Plan: * A-fib with RVR likely secondary to possible CVA and resulting agitation as well as urinary retention * Patient failed rate control with metoprolol in the ED, and given his degree of agitation will likely continue to be tachycardic, prompting need for diltiazem gtt. for rate control * Due to CVA, hold Eliquis or other anticoagulation until after 24 hours, follow-up MRI, and pending patient's ability to tolerate p.o. (4) Acute urinary retention: Plan: * Likely related to CVA, Dejesus catheter placed * Check UA (5) Aphasia: Plan: * See above (6) Stroke-like symptoms: Plan: * See above (7) Lung cancer: Plan: L* Defer further tx pending CVA w/u * Pt is DNR/DNI Lab Results Lab results reviewed: Yes 05/09/24 15:23 05/09/24 15:23 Diagnostic Imaging Results Diagnostic Imaging Results: positive Final report reviewed EKG Results EKG Interpreted Independently: Yes Core Measures Anticipated LOS I expect patient to be DC'd or transferred within 96 hours.: Yes DVT/VTE - Prophylaxis VTE/DVT Device ordered at admit?: Yes Not Ordered - Medical Reason: Contraindicated Stroke - Rehab Assessment Rehab services assessment to be ordered?: Yes AMI - Statin at Admit Aspirin Prescribed on Admit: No Not Ordered - Medical Reason: Complication (Pending swallow eval)
[2024-05-09] MEDS: SODIUM CHLORIDE 0.9% 1,000 ML IV SCH (18:02)
[2024-05-09] MEDS: HALOPERIDOL 5 MG/ML VIAL IVP PRN (18:09)
[2024-05-09] MEDS: diltiaZEM INJ 125 MG in DEXTROSE 5% 100 ML IV SCH (18:13)
[2024-05-09] MEDS: DEXMEDETOMIDINE 400 MCG/100 ML 100 ML IV PRN (18:26)
[2024-05-09 19:20] LABS: BILIRUBIN,URINE NEGATIVE (NEGATIVE); GLUCOSE, URINE (UA) NEGATIVE (NEGATIVE); KETONES,URINE (UA) TRACE mg/dL (NEGATIVE); LEUKOCYTE ESTERASE, URINE NEGATIVE (NEGATIVE); NITRITE,URINE NEGATIVE (NEGATIVE); OCCULT BLOOD,URINE LARGE (NEGATIVE); PH,URINE 7.5 PH (5.0-7.5); PROTEIN,URINE NEGATIVE (NEGATIVE); UROBILINOGEN,URINE 1 (NORMAL) E.U./dL (NORMAL)
[2024-05-09 19:23] LABS: CLARITY,URINE CLEAR (CLEAR)
[2024-05-09 19:36] LABS: WBC,URINE 0-3 /HPF (0-3)
[2024-05-09 19:37] LABS: BACTERIA,URINE None Seen /HPF (None Seen); RBC,URINE TNTC /HPF (0-5); SQUAMOUS EPITHELIAL CELL,UR NONE SEEN (<= Few)
[2024-05-09] MEDS: SODIUM CHLORIDE 0.9% 500 ML IV ONE (21:27)
[2024-05-09] MEDS: SODIUM CHLORIDE FLUSH 0.9% 10 ML SYRINGE IVP PRN (21:57)
[2024-05-10] MEDS: SODIUM CHLORIDE FLUSH 0.9% 10 ML SYRINGE IVP SCH (00:28)
[2024-05-10] MEDS ORDERED: METOPROLOL 5 MG/5 ML VIAL IVP PRN (02:11)
[2024-05-10 04:42] LABS: BASOPHILS % (AUTO) 0.4 %; EOSINOPHILS # (AUTO) 0.1 10^3/uL (0.0-0.7); EOSINOPHILS % (AUTO) 1.5 %; HCT - HEMATOCRIT 36.4 % (42.0-52.0); HGB - HEMOGLOBIN 12.7 g/dL (14.0-18.0); LYMPHOCYTES # (AUTO) 1.1 10^3/uL (1.5-3.5); LYMPHOCYTES % (AUTO) 13.8 %; MEAN CORPUSCULAR HEMOGLOBIN 30.9 pg (27.0-31.0); MEAN CORPUSCULAR HGB CONC 34.9 g/dL (32.0-36.0); MEAN CORPUSCULAR VOLUME 88.6 fL (80.0-94.0); MEAN PLATELET VOLUME 10.1 fL (7.4-11.4); MONOCYTES % (AUTO) 0.4 %; NEUTROPHILS # (AUTO) 6.5 10^3/uL (1.5-6.6); NEUTROPHILS % (AUTO) 82.4 %; PLT - PLATELET COUNT 220 10^3/uL (130-450); RED BLOOD COUNT 4.11 10^6/uL (4.70-6.10); RED CELL DISTRIBUTION WIDTH 14.7 % (12.0-15.0); WHITE BLOOD COUNT 7.9 x10^3/uL (4.8-10.8)
[2024-05-10 04:56] LABS: BUN - BLOOD UREA NITROGEN 17 mg/dL (6-20); CALCIUM 8.4 mg/dL (8.5-10.3); CARBON DIOXIDE - CO2 25 mmol/L (21-32); CHLORIDE 100 mmol/L (101-111); CHOL/HDL RATIO 2.7 (<5.0); CHOLESTEROL 145 mg/dL; CREATININE 0.7 mg/dL (0.6-1.3); GFR - MDRD 110 (>89); GLUCOSE 113 mg/dL (74-104); HDL CHOLESTEROL 54 mg/dL; LDL CHOLESTEROL,CALCULATED 69 mg/dL; LDL/HDL RATIO 1.3 (<3.6); POTASSIUM 3.9 mmol/L (3.5-4.5); SODIUM 132 mmol/L (135-145); TRIGLYCERIDES 108 mg/dL; VLDL CHOLESTEROL 22 mg/dL
[2024-05-10] MEDS: METOPROLOL SUCCINATE 50 MG TABLET PO SCH (08:04)
[2024-05-10 12:05] LABS: ESTIMATED AVERAGE GLUCOSE 117 mg/dL (70-100); HEMOGLOBIN A1c% 5.7 % (4.27-6.07)
--- NOTE | 2024-05-10 12:17 | PHARMACY PROGRESS NOTE ---
Best Possible Medication History Admit Date and Time: 05/09/24 1704 Home Medications Medication Instructions Recorded Confirmed Type hydrochlorothiazide 12.5 mg tablet 12.5 mg PO DAILY PRN diastolic >100 03/02/24 05/10/24 History apixaban 5 mg tablet (Eliquis) 5 mg PO BID 30 days #60 tabs 03/03/24 05/10/24 Rx fluticasone propionate 50 2 spray intranasal DAILY 30 days 03/03/24 05/10/24 Rx mcg/actuation nasal #16 grams spray,suspension metoprolol tartrate 50 mg tablet 50 mg PO BID 05/10/24 05/10/24 History Processed by: Pharmacy Medications reviewed in ED?: No Medication History completed: Yes Patient Interview: Completed Secondary Source(s): Insurance records [facility] Statement: Per patient interview with pharmacist and review of [employer] insurance records. As the person ultimately responsible for medication therapy, providers are able to order a medication from an existing home medication list in [facility] via the "Reconcile Routine" prior to Confirmation of that medication by faculty support coordinator. Such practice is discouraged except when the physician, in their clinical judgment, deems that a medical need exists for a medication without regard to previous use.
--- NOTE | 2024-05-10 16:04 | PROVIDER PROGRESS NOTE ---
Subjective Prog Note Date Prog Note Date: 05/10/24 Prog Note Time: 15:58 Subjective Pt reports feeling: Improved Subjective: Patient is significantly improved although still confused Current Medications Current Medications Current Medications: Current Medications Generic Name Dose Route Start Last Admin Trade Name Freq PRN Reason Stop Dose Admin Haloperidol 2 mg 05/09/24 17:19 05/10/24 00:52 Haloperidol 5 Mg/Ml Vial IVP 2 mg Q4HR PRN Administration Agitation Diltiazem HCl 125 mg/ Dextrose 125 mls @ 5 mls/hr 05/09/24 18:00 05/10/24 11:27 IV Infused .Q25H STEPHIE Titration Protocol 5 MG/HR Dexmedetomidine/Sodium Chloride 100 mls @ 3.97 mls/hr 05/09/24 18:20 05/10/24 11:28 Precedex Premix IV Infused .[id number] PRN Titration Agitation Protocol 0.2 MCG/KG/HR Metoprolol Succinate 50 mg 05/10/24 09:00 05/10/24 08:04 Metoprolol Succinate 50 Mg Tablet PO 50 mg DAILY STEPHIE Administration Metoprolol Tartrate 5 mg 05/10/24 02:11 Metoprolol 5 Mg/5 Ml Vial IVP Q6H PRN Tachycardia Ondansetron HCl 4 mg 05/09/24 17:43 Ondansetron 4 Mg/2 Ml Vial IVP Q6HR PRN Nausea / Vomiting Sodium Chloride 10 ml 05/09/24 17:43 05/09/24 21:57 Sodium Chloride Flush 0.9% 10 Ml Syringe IVP 10 ml PRN PRN Administration NEEDED PER PROVIDER ORDERS Sodium Chloride 10 ml 05/10/24 01:00 05/10/24 08:05 Sodium Chloride Flush 0.9% 10 Ml Syringe IVP 10 ml 0100,0900,1700 STEPHIE Administration Objective Vital Signs/Intake & Output Reviewed Vital Signs: Yes Vital Signs: Vital Signs x48h Temp Pulse Resp BP Pulse Ox 05/10/24 15:00 70 24 117/64 99 05/10/24 14:00 70 18 107/67 97 05/10/24 13:00 70 23 111/72 98 05/10/24 12:00 36.6 C 65 19 116/80 98 05/10/24 11:00 72 10 L 126/79 98 05/10/24 10:00 90 22 140/87 H 97 05/10/24 09:00 69 13 113/60 96 05/10/24 08:00 37.2 C 87 24 133/79 H 98 Intake & Output: Intake & Output 05/07/24 05/08/24 05/09/24 05/10/24 23:59 23:59 23:59 23:59 Intake Total 550 / 550 2658 / 2658 Output Total 1665 / 1665 1450 / 1450 Balance -1115 / -1115 1208 / 1208 Weight (kg) 79.4 kg Objective General Appearance: positive No acute distress and Alert Eyes Bilateral: positive Normal inspection Respiratory: positive Chest non-tender, No respiratory distress and Breath sounds nml; negative Wheezes Cardiovascular: positive No murmur, No gallop and Irregularly irregular Abdomen: positive Non-tender, No organomegaly, Nml bowel sounds and No distention Skin: positive Color nml Extremities: positive Non-tender and No pedal edema Neurologic/Psychiatric: positive CN's nml (2-12), Disoriented to place, Disoriented to time and Other (Neurological status significantly improved, extremity weakness resolved, facial droop resolved, oriented to person and to hospital but not to further details, not oriented to year, not oriented to situation); negative Disoriented to person Lab Results 05/10/24 04:23 05/10/24 04:23 Other Labs: Lab Results x24hrs 05/10/24 05/09/24 05/09/24 Range/Units 04:23 19:10 17:47 WBC 7.9 (4.8-10.8) x10^3/uL RBC 4.11 L (4.70-6.10) 10^6/uL Hgb 12.7 L (14.0-18.0) g/dL Hct 36.4 L (42.0-52.0) % MCV 88.6 (80.0-94.0) fL MCH 30.9 (27.0-31.0) pg MCHC 34.9 (32.0-36.0) g/dL RDW 14.7 (12.0-15.0) % Plt Count 220 (130-450) 10^3/uL MPV 10.1 (7.4-11.4) fL Neut # (Auto) 6.5 (1.5-6.6) 10^3/uL Lymph # (Auto) 1.1 L (1.5-3.5) 10^3/uL [place] # (Auto) 0.0 (0.0-1.0) 10^3/uL Eos # (Auto) 0.1 (0.0-0.7) 10^3/uL Baso # (Auto) 0.0 (0.0-0.1) 10^3/uL Absolute Nucleated RBC 0.00 x10^3/uL Nucleated RBC % 0.0 /100WBC Sodium 132 L (135-145) mmol/L Potassium 3.9 (3.5-4.5) mmol/L Chloride 100 L (101-111) mmol/L Carbon Dioxide 25 (21-32) mmol/L Anion Gap 7.0 (6-13) BUN 17 (6-20) mg/dL Creatinine 0.7 (0.6-1.3) mg/dL Estimated GFR (MDRD) 110 (>89) Glucose 113 H (74-104) mg/dL Estimat Average Glucose 117 H (70-100) mg/dL Hemoglobin A1c % 5.7 (4.27-6.07) % Uric Acid (4.4-7.6) mg/dL Calcium 8.4 L (8.5-10.3) mg/dL Triglycerides 108 mg/dL Cholesterol 145 ( - 200) mg/dL LDL Cholesterol, Calc 69 ( - 129) mg/dL VLDL Cholesterol 22 mg/dL HDL Cholesterol 54 L (60 - ) mg/dL LDL/HDL Ratio 1.3 (<3.6) Cholesterol/HDL Ratio 2.7 (<5.0) Urine Color YELLOW Urine Clarity CLEAR (CLEAR) Urine pH 7.5 (5.0-7.5) PH Ur Specific [place] 1.015 (1.002-1.030) Urine Protein NEGATIVE (NEGATIVE) mg/dL Urine Glucose (UA) NEGATIVE (NEGATIVE) mg/dL Urine Ketones TRACE (NEGATIVE) mg/dL Urine Occult Blood LARGE H (NEGATIVE) Urine Nitrite NEGATIVE (NEGATIVE) Urine Bilirubin NEGATIVE (NEGATIVE) Urine Urobilinogen 1 (NORMAL) (NORMAL) E.U./dL Ur Leukocyte Esterase NEGATIVE (NEGATIVE) Urine RBC TNTC H (0-5) /HPF Urine WBC 0-3 (0-3) /HPF Ur Squamous Epith Cells NONE SEEN (<= Few) Urine Bacteria None Seen (None Seen) /HPF Urine Culture Comments NOT INDICATED Nasal Screen MRSA (PCR) NEGATIVE (NEGATIVE) 05/09/24 Range/Units 15:23 WBC (4.8-10.8) x10^3/uL RBC (4.70-6.10) 10^6/uL Hgb (14.0-18.0) g/dL Hct (42.0-52.0) % MCV (80.0-94.0) fL MCH (27.0-31.0) pg MCHC (32.0-36.0) g/dL RDW (12.0-15.0) % Plt Count (130-450) 10^3/uL MPV (7.4-11.4) fL Neut # (Auto) (1.5-6.6) 10^3/uL Lymph # (Auto) (1.5-3.5) 10^3/uL [place] # (Auto) (0.0-1.0) 10^3/uL Eos # (Auto) (0.0-0.7) 10^3/uL Baso # (Auto) (0.0-0.1) 10^3/uL Absolute Nucleated RBC x10^3/uL Nucleated RBC % /100WBC Sodium (135-145) mmol/L Potassium (3.5-4.5) mmol/L Chloride (101-111) mmol/L Carbon Dioxide (21-32) mmol/L Anion Gap (6-13) BUN (6-20) mg/dL Creatinine (0.6-1.3) mg/dL Estimated GFR (MDRD) (>89) Glucose (74-104) mg/dL Estimat Average Glucose (70-100) mg/dL Hemoglobin A1c % (4.27-6.07) % Uric Acid 5.9 (4.4-7.6) mg/dL Calcium (8.5-10.3) mg/dL Triglycerides mg/dL Cholesterol ( - 200) mg/dL LDL Cholesterol, Calc ( - 129) mg/dL VLDL Cholesterol mg/dL HDL Cholesterol (60 - ) mg/dL LDL/HDL Ratio (<3.6) Cholesterol/HDL Ratio (<5.0) Urine Color Urine Clarity (CLEAR) Urine pH (5.0-7.5) PH Ur Specific [place] (1.002-1.030) Urine Protein (NEGATIVE) mg/dL Urine Glucose (UA) (NEGATIVE) mg/dL Urine Ketones (NEGATIVE) mg/dL Urine Occult Blood (NEGATIVE) Urine Nitrite (NEGATIVE) Urine Bilirubin (NEGATIVE) Urine Urobilinogen (NORMAL) E.U./dL Ur Leukocyte Esterase (NEGATIVE) Urine RBC (0-5) /HPF Urine WBC (0-3) /HPF Ur Squamous Epith Cells (<= Few) Urine Bacteria (None Seen) /HPF Urine Culture Comments Nasal Screen MRSA (PCR) (NEGATIVE) Diagnostic Imaging Diagnostic Imaging Results: positive Final report reviewed Assessment/Plan Problem List (1) Encephalopathy acute: Impression: * Significantly resolved, close to baseline mental status but still disoriented to location and time * MRI is pending, though at this point given his significant improvement with minimal intervention I do not suspect this is likely related to metastatic disease to the brain (2) CVA (cerebral vascular accident): Impression: * Patient presented with acute encephalopathy, left-sided weakness, and right- sided facial droop suggestive of CVA versus TIA and most of symptoms have now resolved * CT, CT angiogram head and neck all unrevealing, MRI is pending * Patient had a echocardiogram in February which was relatively unremarkable, will order a limited echocardiogram bubble studies to confirm no PFO or thrombus (3) Paroxysmal atrial fibrillation with rapid ventricular response: Impression: * Patient weaned off diltiazem drip and is currently rate controlled * Resume home metoprolol succinate 50 mg daily (4) Acute urinary retention: Impression: * Resolved * Dejesus removed last night * Monitor * UA reassuring (5) Aphasia: Impression: * Mucn improved, if not resolved (6) Stroke-like symptoms: Impression: * Motor sx resolved (7) Lung cancer: Impression: * Outpt w/u
[2024-05-10] MEDS ORDERED: GADOTERATE MEGLUMINE 10 MMOL/20 ML VIAL ONE (17:30)
--- NOTE | 2024-05-10 18:31 | MRI Report ---
PROCEDURE: MRI Brain W/WO INDICATIONS: CVA? aphasia, L sided weakness, facial droop CONTRAST: 16ml Clariscan TECHNIQUE: Noncontrast axial T1 spin echo, axial T2 fast spin echo, sagittal and axial FLAIR, coronal T2 fast sp in echo, axial gradient echo, axial diffusion and ADC through the brain. After the administration of contrast, axial and coronal T1 spin echo with fat saturation through the brain. COMPARISON: 05/09/2024 CT FINDINGS: Image quality: Diagnostic CSF spaces: Basal cisterns are patent. Lateral ventricles are symmetric. Volume: Periventricular white matter signal abnormality is commonly seen with chronic microangiopathy . Volume loss is present. These findings are mild to moderate . Brain: There is no acute diffusion restriction. No intracranial hematoma on gradient images. Following gadolinium administration, there is no suspicious intracranial enhancement. No extra-axial fluid collections. Craniofacial structures: No aggressive appearing focal bone lesion. IMPRESSION: No acute infarct or hematoma. No suspicious intracranial enhancement. Reviewed by: Maynor Denise MD on 05/10/2024 6:30 PM PDT Approved by: Maynor Denise MD on 05/10/2024 6:30 PM PDT Station ID: [id number]
[2024-05-10] MEDS: GADOTERATE MEGLUMINE 10 MMOL/20 ML VIAL IVP ONE (18:43)
[2024-05-11 04:45] LABS: BASOPHILS % (AUTO) 0.3 %; EOSINOPHILS # (AUTO) 0.1 10^3/uL (0.0-0.7); EOSINOPHILS % (AUTO) 2.2 %; HCT - HEMATOCRIT 34.4 % (42.0-52.0); HGB - HEMOGLOBIN 11.4 g/dL (14.0-18.0); LYMPHOCYTES # (AUTO) 1.4 10^3/uL (1.5-3.5); LYMPHOCYTES % (AUTO) 23.5 %; MEAN CORPUSCULAR HEMOGLOBIN 30.6 pg (27.0-31.0); MEAN CORPUSCULAR HGB CONC 33.1 g/dL (32.0-36.0); MEAN CORPUSCULAR VOLUME 92.5 fL (80.0-94.0); MEAN PLATELET VOLUME 10.4 fL (7.4-11.4); MONOCYTES % (AUTO) 0.5 %; NEUTROPHILS # (AUTO) 4.2 10^3/uL (1.5-6.6); PLT - PLATELET COUNT 196 10^3/uL (130-450); RED BLOOD COUNT 3.72 10^6/uL (4.70-6.10); RED CELL DISTRIBUTION WIDTH 15.1 % (12.0-15.0); WHITE BLOOD COUNT 5.8 x10^3/uL (4.8-10.8)
[2024-05-11 05:01] LABS: CALCIUM 8.5 mg/dL (8.5-10.3); CREATININE 0.7 mg/dL (0.6-1.3); POTASSIUM 4.2 mmol/L (3.5-4.5)
[2024-05-11 12:03] VITALS: TEMP 98.2
--- NOTE | 2024-05-11 12:37 | Discharge Summary ---
"Discharge Summary Admit Date: 05/09/24 Discharge Date: 05/11/24 Discharging Provider: Dr. Zohra Shelley Primary Care Provider: Bianca Swenson Code Status: Do Not Attempt Resuscitation Discharge Facility Name: Home DIAGNOSES Admission Diagnoses: Acute encephalopathy CVA Proximal atrial fibrillation with rapid ventricular response Acute urinary retention Aphasia Strokelike symptoms Lung cancer Discharge Diagnoses with Status of Each Condition: TIAMRI was negative. Patient already on Eliquis. Does not require aspirin at this time. Will start him on statin, despite normal LDL levels due to secondary prevention. Advised to follow-up with a neurologist in the outpatient setting. Acute encephalopathyresolved. Paroxysmal atrial fibrillation with rapid ventricular responsecontinue Eliquis, metoprolol. Lung cancerfollow-up with oncology and primary care provider in the outpatient setting. HPI History of Present Illness: Per Dr. Reagan: Patient is a 73-year-old man whose PMH consists of A-fib diagnosed February 2024 on Eliquis, followed by diagnosis of lung cancer now status post chemo and radiation for 1 week who presents to the ED with a sudden onset of expressive and receptive aphasia along with right facial droop and left upper and lower extremity weakness. Patient is also altered, and agitated at the time of admission and as such history is provided primarily by ED attending Dr. Becerra as well as patient's was at the bedside at the time of admission. Reportedly, patient was in his normal state of health yesterday, as well as this morning up until approximately noon when the states they were sitting at the table reading the newspaper when suddenly he became confused, and somewhat agitated unable to speak with comprehensive language. She thought he was tired and he tried to walk himself to the bedroom but required a significant amount of assistance. He eventually made it to the bedroom and lay down in the bed, but he continued to be confused and was not clearly following instructions. At this point she became concerned and called 911. When paramedics arrived they found him to also have a right-sided facial droop, and it became more clear that he was having weakness on the left side of both upper and lower extremities. Upon arrival to the ED, the above-mentioned symptoms were noted and he was evaluated as a possible stroke. Head CT was immediately obtained and showed no acute abnormalities. He was also though noted to be in A-fib with RVR with heart rates in the 140s. He was given a single dose of metoprolol5 mg IV which initially successfully returned to his heart rate to the 80s and 90s, but shortly after return to the 130s. CT angiogram of head and neck were also obtained in the ED which showed no large vessel occlusion.Telestroke neurology consultation was obtained and the patient was not deemed to be a candidate for TNK due to both timeframe as well as anticoagulation with Eliquis. However admission for MRI and stroke workup was recommended. Given the patient's A-fib with RVR, as well as his agitation requiring bilateral upper extremity restraints, he will be admitted to the ICU. CONSULTS | PROCEDURES Consultations: Telestroke neurology Procedures: CT head, CT angiography, brain MRI HOSPITAL COURSE Hospital Course: Patient is a 73-year-old male with a history of atrial fibrillation on Eliquis, lung cancer on chemo and radiation who presented with sudden onset receptive and expressive aphasia, as well as right-sided facial droop, and left-sided weakness. He was altered and agitated at the time of admission. He was started on a Precedex drip. He was also found to be in atrial fibrillation with rapid ventricular response, which responded well to metoprolol. Initially CTA of the head, as well as CT head was done, which did not show any acute abnormalities. Telestroke neurology was consulted, and did not deem patient suitable for TNK. MRI was orderedit was completed today, and it did not show any acute abnormalities. ECHO also did not show any abnormalities. Patient mentation returned to baseline. He is alert and oriented x 4, cooperative and calm. His deficits have resolved almost to nothing. He likely had a TIA. Will continue him on Eliquis on discharge, as well as metoprolol. His hydrochlorothiazide was held as his blood pressures are soft. He was advised to follow-up with a neurologist in the outpatient setting. PT, OT evaluated the patient and advised return to home. Patient was advised to follow-up with his primary care provider, as well as his oncologist. ALLERGIES Allergies Allergy/AdvReac Type Severity Reaction Status Date / Time Sulfa (Sulfonamide Allergy Mild Nausea Verified 05/09/24 17:09 Antibiotics) MEDICATIONS Ambulatory Orders Medication Instructions Recorded Confirmed apixaban 5 mg tablet (Eliquis) 5 mg PO BID 30 days #60 tabs 03/03/24 05/10/24 fluticasone propionate 50 2 spray intranasal DAILY 30 days 03/03/24 05/10/24 mcg/actuation nasal #16 grams spray,suspension metoprolol tartrate 50 mg tablet 50 mg PO BID 05/10/24 05/10/24 atorvastatin 40 mg tablet 40 mg PO QPM 30 days #30 tabs 05/11/24 PHYSICAL EXAM AT DISCHARGE General Appearance: positive No acute distress and Alert; negative Anxious Eyes Bilateral: positive Normal inspection, PERRL and EOMI ENT: positive ENT inspection nml, Pharynx nml and No signs of dehydration Neck: positive Nml inspection, Thyroid nml and No JVD Respiratory: positive Chest non-tender, No respiratory distress and Breath sounds nml; negative Wheezes, Rales or Rhonchi Cardiovascular: positive Regular rate & rhythm, No murmur, No gallop and Irregularly irregular Peripheral Pulses: positive 2+ Abdomen: positive Non-tender and No distention; negative Rebound, Hepatomegaly, Splenomegaly or Mass Back: positive Nml inspection; negative CVA tenderness (R) or CVA tenderness (L) Skin: positive Color nml, No rash, Warm and Dry Extremities: positive Non-tender, Full ROM, Nml appearance and No pedal edema Neurologic/Psychiatric: positive Oriented x3, Motor nml (Mild weakness of LLE and LUE) and Mood/affect nml LABS 05/11/24 04:05 05/11/24 04:05 DIAGNOSTIC IMAGING Diagnostic Imaging Results: Final report reviewed FOLLOW UP Follow Up: Follow up with neurology. Follow up with PCP. Follow up with oncology. TIME SPENT Time Spent in Discharge (Minutes): 35 Discharge Plan Discharge Patient Disposition: Home, Self Care Condition: Stable Prescriptions: New atorvastatin 40 mg Tablet 40 mg PO QPM 30 Days Qty: 30 0RF Continued Eliquis 5 mg Tablet 5 mg PO BID 30 Days Qty: 60 0RF fluticasone propionate 50 mcg/actuation [place],Suspension 2 spray intranasal DAILY 30 Days Qty: 16 0RF metoprolol tartrate 50 mg tablet 50 mg PO BID Patient Comments: TAKE ONE TABLET BY MOUTH TWICE DAILY Discontinued hydrochlorothiazide 12.5 mg tablet 12.5 mg PO DAILY PRN (Reason: diastolic >100) Activity Restrictions: Activity as Tolerated Diet: Regular Health Concerns: You came in because you were confused, and you are having some difficulty speaking. We think you may have had a TIA, or a mini stroke. Your MRI did not show any acute strokes or bleeds. Your ultrasound of your heart did not show any abnormalities. When you have had a mini stroke, you always have a higher chance of having a real stroke. As such, I want you to take a cholesterol medication to help prevent such. I would also like you to continue your Eliquis. Your blood pressure was on the lower sidewe did continue metoprolol, but hold your hydrochlorothiazide. Please follow-up with your primary care provider in the outpatient setting for further titration of these blood pressure medications. Please continue close follow-up with your primary care provider, as well as your oncologist. We are glad you're feeling better, thank you for allowing us to take care of you. Print Language: Yemeni Patient Instructions: TIA Stand Alone Forms: PCP List Follow-up Care: Bianca Swenson MD [Primary Care Provider] -"
[2024-05-11 17:37] VITALS: BP 117/83; O2SAT 96
[2024-05-11] MEDS ORDERED: APIXABAN 5 MG TABLET PO SCH (21:00)
[2024-05-11] MEDS ORDERED: ATORVASTATIN 40 MG TABLET PO SCH (21:00)
== END 2024-05-11 17:50 | disposition home or self-care (01) | DRG 69 ==
LOC: ED 14:54 → ICU 17:04
PROVIDERS: ADMIT Family Medicine Sports Medicine; ATTEND Family Medicine Sports Medicine
DX: R29.810 Facial weakness; G45.9 Transient cerebral ischemic attack, unspecified; R47.02 Dysphasia; I48.0 Paroxysmal atrial fibrillation; I47.10 Supraventricular tachycardia, unspecified; R33.9 Retention of urine, unspecified; C34.90 Malignant neoplasm of unspecified part of unspecified bronchus or lung; R29.898 Other symptoms and signs involving the musculoskeletal system; R74.01 Elevation of levels of liver transaminase levels; Z92.3 Personal history of irradiation; G93.40 Encephalopathy, unspecified; Z66 Do not resuscitate; Z79.01 Long term (current) use of anticoagulants; Z92.21 Personal history of antineoplastic chemotherapy; Z87.891 Personal history of nicotine dependence

== ENCOUNTER 2024-06-25 13:56 | Inpatient (IN) ==
--- NOTE | 2024-06-25 14:33 | ED Physician Documentation ---
History of Present Illness Stated complaint Stated Complaint: WEAKNESS, BLOOD+ Chief complaint Chief Complaint: General History obtained from History obtained from: Patient and Family Additonal information Additional information: 73-year-old gentleman with stage III lung cancer is getting radiation and was getting chemotherapy both at [facility]. Stopped chemotherapy recently due to poor tolerance. He went to seizure while he on Friday for his radiation but he was having a productive cough and chills. They sent him over to the emergency department where per the he had normal blood work and was started on Augmentin. That said they called him today with per her report 1 positive blood culture. No further information is available about that on initial arrival. He does not feel better than he did the other day but does not feel particular worse either. He is prof productive of sputum with some blood in it. He is feeling a little weak. Not more short of breath than normal. Meds/Allgy Home Medications Ambulatory Orders Medication Instructions Recorded Confirmed apixaban 5 mg tablet (Eliquis) 5 mg PO BID 30 days #60 tabs 03/03/24 05/10/24 fluticasone propionate 50 2 spray intranasal DAILY 30 days 03/03/24 05/10/24 mcg/actuation nasal #16 grams spray,suspension metoprolol tartrate 50 mg tablet 50 mg PO BID 05/10/24 05/10/24 atorvastatin 40 mg tablet 40 mg PO QPM 30 days #30 tab s 05/11/24 Allergies Allergies Allergy/AdvReac Type Severity Reaction Status Date / Time Sulfa (Sulfonamide Allergy Mild Nausea Verified 06/25/24 14:02 Antibiotics) PFSH Active Problems All Active Problems (Updated 06/25/24 @ 15:55 by John King MD) Bacteremia due to Gram-positive bacteria (Acute) Acute confusion (Acute) Weakness (Acute) Lung cancer (Acute) CVA (cerebral vascular accident) (Acute) Paroxysmal atrial fibrillation with rapid ventricular response (Acute) Medical History Medical History (Updated 06/25/24 @ 15:55 by John King MD) Environmental allergies Mass of right lung New onset atrial fibrillation Social History Social History Smoking Status: Former smoker If you are a former smoker, when did you quit? (Date/Year): 50 years ago quit Do you dip or chew tobacco?: No Do you vape?: No Relationship: Spouse Level: Independent Do you feel safe in your home environment?: Yes Suffered physical, verbal, emotional, or financial abuse?: No ETOH Use: Frequency: Daily Number of Amount/day: 5 ETOH Use Details: he states he drinks "probably more than I should" Substance Use: cannabis (any form) POLST Patient has POLST: Yes POLST Status: DNR Exam Exam Vital Signs: Vital Signs x48h Temp Pulse Resp BP Pulse Ox 06/25/24 15:45 106 H 22 129/81 92 06/25/24 15:30 102 H 20 117/84 95 06/25/24 15:19 106 H 18 118/74 92 06/25/24 14:43 117 H 16 107/72 95 06/25/24 14:02 37.5 C 88 18 93/54 L 96 Constitutional normal general appearance He has a loud productive cough but does not appear in distress otherwise. Respiratory Rhonchorous throughout, nonlabored Cardiovascular Irregularly irregular tachycardic without murmur Gastrointestinal abdomen soft to palpation and nontender to palpation Results Vitals Vitals: Vital Signs - 24 hr 06/25/24 14:02 06/25/24 14:43 06/25/24 15:19 Temperature 37.5 C Temperature Source Oral Pulse Rate 88 117 H 106 H Respiratory Rate 18 16 18 Blood Pressure 93/54 L 107/72 118/74 O2 Saturation 96 95 92 O2 Source Room air Room air Room air Pain Intensity 0 06/25/24 15:30 06/25/24 15:45 Temperature Temperature Source Pulse Rate 102 H 106 H Respiratory Rate 20 22 Blood Pressure 117/84 129/81 O2 Saturation 95 92 O2 Source Room air Room air Pain Intensity Oxygen O2 Source Room air Labs Labs: Laboratory Tests 06/25/24 14:34 WBC 2.2 L RBC 3.05 L Hgb 9.4 L Hct 27.0 L MCV 88.5 MCH 30.8 MCHC 34.8 RDW 15.6 H Plt Count 283 MPV 9.1 Neut # (Auto) Not Reportable Lymph # (Auto) Not Reportable [place] # (Auto) Not Reportable Eos # (Auto) Not Reportable Baso # (Auto) Not Reportable Absolute Nucleated RBC Not Reportable Total Counted 100 Band Neuts % (Manual) 14 H Abnorm Lymph % (Manual) 0 Nucleated RBC % Not Reportable Neutrophils # (Manual) 1.9 Lymphocytes # (Manual) 0.2 L Monocytes # (Manual) 0.1 Eosinophils # (Manual) 0.0 Basophils # (Manual) 0.0 Differential Comment MANUAL DIFFERENTIAL Platelet Estimate NORMAL (130-450,000) Platelet Morphology NORMAL APPEARANCE RBC Morph Micro Appear NORMAL APPEARANCE Sodium 130 L Potassium 3.1 L Chloride 94 L Carbon Dioxide 25 Anion Gap 11.0 BUN 22 H Creatinine 0.7 Estimated GFR (MDRD) 110 Glucose 126 H Lactic Acid 1.7 Calcium 8.9 Total Bilirubin 1.8 H AST 103 H ALT 55 Alkaline Phosphatase 67 Total Protein 6.3 L Albumin 3.2 Globulin 3.1 Albumin/Globulin Ratio 1.0 Rads (name of study) Chest x-ray demonstrates known right upper lobe mass without obvious infiltrate.: Relevant Findings:: Final report received and EMP independent interpretation of test (NAD) PD Medical Decision Making ED course ED course: This is 73-year-old gentleman with lung cancer and A-fib who has a soft blood pressure at mid 90s over mid 50s and is tachycardic who is brought in with positive blood cultures from [facility] from 2 days ago. He has a new productive cough. I was able to improve his A-fib with RVR with a liter of fluids and a dose of IV metoprolol. Records obtained from [facility]. He had positive blood cultures for MSSA. While this could be contaminants, I am worried that today he is leukopenic with bandemia. As such she was cultured up and given cefepime and vancomycin and he was agreeable to admission. Spoke with Dr. Jha for same at 3:50 PM. The patient and family are counseled as to the diagnosis and need for admission. This document was made in part using voice recognition software, while efforts are made to proofread this document, sound alike an grammatical errors may occur. Discharge Plan Discharge Patient Disposition: [facility] DC/Xfer Condition: Serious Clinical Impression: Paroxysmal atrial fibrillation with rapid ventricular response, Bacteremia due to Gram-positive bacteria Prescriptions: No Action Eliquis 5 mg Tablet 5 mg PO BID 30 Days Qty: 60 0RF fluticasone propionate 50 mcg/actuation [place],Suspension 2 spray intranasal DAILY 30 Days Qty: 16 0RF metoprolol tartrate 50 mg tablet 50 mg PO BID Patient Comments: TAKE ONE TABLET BY MOUTH TWICE DAILY atorvastatin 40 mg Tablet 40 mg PO QPM 30 Days Qty: 30 0RF Print Language: Armenian
[2024-06-25] MEDS: CEFEPIME 2 GM in SODIUM CHLORIDE 0.9% MINIBAG 100 ML IV STA (14:39)
--- OUTSIDE RECORDS SUMMARY | 2024-06-25 14:42 | EXTERNAL MEDICAL SUMMARY RPT | Continuity of Care Document ---
Author Organization [facility] Address [address] [place] [id number] Phone Problems date description facility 2024-03-30 15:03 Other nonspecific abnormal find ing of [facility] 2024-03-30 16:10 Secondary malignant neoplasm of [facility] 2024-03-30 16:10 Other nonspecific abnormal find ing of [facility] 2024-03-31 07:52 Secondary malignant neoplasm of [facility] 2024-03-31 07:52 Other nonspecific abnormal find ing of [facility] 2024-04-28 11:52 Secondary malignant neoplasm of [facility] 2024-04-28 11:52 Other nonspecific abnormal find ing of [facility] 2024-05-10 09:15 Malignant neoplasm o f unspecified part of unspecified bronchus or lung [facility] 2024-05-10 09:15 Encephalopathy, unspecified [facility] 2024-05-10 09:15 Paroxysmal atrial fibrillation [facility] 2024-05-10 09:15 Cerebral infarction, unspecifie d [facility] 2024-05-10 09:15 Unspecified symptoms and signs involving the nervous system [facility] 2024-05-10 09:15 Other [facility] 2024-05-10 09:15 Aphasia [facility] 2024-05-11 12:16 Malignant neoplasm o f unspecified part of unspecified bronchus or lung [facility] 2024-05-11 12:16 Encephalopathy, unspecified [facility] 2024-05-11 12:16 Paroxysmal atrial fibrillation [facility] 2024-05-11 12:16 Cerebral infarction, unspecifie d [facility] 2024-05-11 12:16 Unspecified symptoms and signs involving the nervous system [facility] 2024-05-11 12:16 Other [facility] 2024-05-11 12:16 [facility] 12:37 Malignant neoplasm o f unspecified part of unspecified bronchus or lung [facility] 2024-05-11 12:37 Encephalopathy, unspecified i [email or web address] 2024-05-11 12:37 Paroxysmal atrial fibrillation [facility] 2024-05-11 12:37 Cerebral infarction, unspecifie d [facility] 2024-05[facility]11 12:37 Unspecified symptoms and signs involving the nervous system [facility] 2024-05[facility]11 12:37 Other [facility] 2024-05-11 12:37 [facility]asia [facility] 2024-05-11 14:37 Malignant neoplasm o f unspecified part of unspecified bronchus or lung [facility] 2024-05-11 14:37 [facility], [facility] 14:37 Paroxysmal [facility] fibrillation [facility] 2024-05-11 14:37 Cerebral infarction, unspecifie d [facility] 2024-05-11 14:37 Unspecified symptoms and signs involving the nervous system [facility] 2024-05-11 14:37 Other [facility] of [facility] 2024-05-11 14:37 [facility]asia [facility] 2024-05-11 15:59 Malignant neoplasm o f unspecified part of unspecified bronchus or lung [facility] 2024-05-11 15:59 [facility]cephalopathy[facility]11 15:59 Paroxysmal atrial fibrillation [facility] 2024-05-11 15:59 Cerebral infarction, unspecifie d [facility] 2024-05-11 15:59 Unspecified symptoms and signs involving the nervous system [facility] 2024-05-11 15:59 Other [facility] of [facility] 2024-05-11 15:59 [facility]phasia [facility] 2024-05-11 16:02 Malignant neoplasm o f unspecified part of unspecified bronchus or lung [facility] 2024-05-11 16:02 Encephalopathy, unspecified [facility] [email or web address] 2024-05-11 16:02 Paroxysmal atrial fibrillation [facility] 2024-05-11 16:02 Cerebral infarction, unspecifie d [facility] 2024-05-11 16:02 Unspecified symptoms and signs involving the nervous system [facility] 2024-05-11 16:02 Other [facility] of urine [facility] 2024-05-11 16:02 [facility]phasia [facility] 2024-05-11 17:17 Malignant neoplasm o f unspecified part of unspecified bronchus or lung [facility] 2024-05-11 17:17 Encephalopathy, unspecified i [email or web address] 2024-05-11 17:17 Paroxysmal atrial fibrillation [facility] 2024-05-11 17:17 Cerebral infarction, unspecifie d [facility] 2024-05-11 17:17 Unspecified symptoms and signs involving the nervous system [facility] 2024-05-11 17:17 Other [facility] of [facility] 2024-05-11 17:17 Aphasia [facility] 2024-05-11 17:53 Malignant neoplasm o f unspecified part of unspecified bronchus or lung [facility] 2024-05-11 17:53 Encephalopathy, unspecified [facility] [email or web address] 2024-05-11 17:53 Paroxysmal atrial fibrillation [facility] 2024-05-11 17:53 Cerebral infarction, unspecifie d [facility] 2024-05-11 17:53 Unspecified symptoms and signs involving the nervous system [facility] 2024-05-11 17:53 Other [facility] of urine [facility] 2024-05-11 17:53 Aphasia [facility] 2024-05-11 17:54 Malignant neoplasm o f unspecified part of unspecified bronchus or lung [facility] 2024-05-11 17:54 Encephalopathy, unspecified [facility] [email or web address] 2024-05-11 17:54 Paroxysmal atrial fibrillation [facility] 2024-05-11 17:54 Cerebral infarction, unspecifie d [facility] 2024-05-11 17:54 Unspecified symptoms and signs involving the nervous system [facility] 2024-05-11 17:54 Other [facility] of urine [facility] 2024-05-11 17:54 [facility]phasia [facility] 2024-05-12 08:35 Malignant neoplasm o f unspecified part of unspecified bronchus or lung [facility] 2024-05-12 08:35 Encephalopathy, unspecified i [facility] 2024-05-12 08:35 Paroxysmal atrial fibrillation [facility] 2024-05-12 08:35 Cerebral infarction, unspecifie d [facility] 2024-05-12 08:35 [facility] 2024-05-12 08:35 Other symptoms and s igns involving the musculoskeletal system [facility] 2024-05-12 08:35 Unspecified symptoms and signs involving the nervous system [facility] 2024-05-12 08:35 Other retention of urine [facility] 2024-05-12 08:35 [facility]asia [facility] 2024-05-12 08:35 [facility] 2024-05-14 12:03 Altered mental status, unspecif ied [facility] 2024-06-09 11:56 Altered mental status, unspecif ied [facility] 2024-06-09 11:56 Weakness [facility] 2024-06-15 10:05 Fever, unspecified [facility] th Results/Labs test date facility value unit notes Result panel 1 NUCLEATED RED BLOOD CELLS AUTO 2024-05-09 15:23 [employer] [facility] 0.0 /100wbc (missing) BASOPHILS # (AUTO) 2024-05-09 15:23 [facility] 0.0 10 3/ul (missing) MONOCYTES # (AUTO) 2024-05-09 15:23 [facility] 0.0 10 3/ul (missing) NRBC ABSOLUTE COUNT (AUTO) 2024-05-09 15:23 [facility] 0.00 x10 3/ul (missing) EOSINOPHILS # (AUTO) 2024-05-09 15:23 [facility] 0.2 10 3/ul (missing) CREATININE 2024-05-09 15:23 [facility] 0.8 mg/dl As of August 2022 testing method has changed, this may include reference ranges. BILIRUBIN,TOTAL 2024-05-09 15:23 [facility] 0.9 mg /dl As of August 2022 testing method has changed, this may include reference ranges. LYMPHOCYTES # (AUTO) 2024-05-09 15:23 [facility] 1.1 10 3/ul (missing) ALBUMIN/GLOBULIN RATIO 2024-05-09 15:23 [facility] 1.2 (missing) (missing) GLUCOSE 2024-05-09 15:23 [facility] 108 mg/dl As of August 2022 testing method has changed, this may include reference ranges. AST ASPARTATE AMINOTRANSFERASE 2024-05-09 15:23 [facility] 12 iu/l As of August 2022 testing method has changed, this may include reference ranges. ANION GAP 2024-05-09 15:23 [facility] 12.0 (missing ) (missing) SODIUM 2024-05-09 15:23 [facility] 130 mmol/l As of August 2022 testing method has changed, this may include reference ranges. ALT ALANINE AMINOTRANSFERASE 2024-05-09 15:23 [facility] 14 iu/l As of August 2022 testing method has changed, this may include reference ranges. HGB - HEMOGLOBIN 2024-05-09 15:23 [facility] 14.4 g /dl (missing) RED CELL DISTRIBUTION WIDTH 2024-05-09 15:23 [facility] 14.7 % (missing) CARBON DIOXIDE - CO2 2024-05-09 15:23 [facility] 23 mmol/l As of August 2022 testing method has changed, this may include reference ranges. BUN - BLOOD UREA NITROGEN 2024-05-09 15:23 [facility] 24 mg/dl As of Aug testing method has changed, this may include reference ranges. MEAN CORPUSCULAR HEMOGLOBIN 2024-05-09 15:23 [facility] 29.9 pg (missing) PLT - PLATELET COUNT 2024-05-09 15:23 [facility] 299 10 3/ul (missing) GLOBULIN 2024-05-09 15:23 [facility] 3.0 g/dl (missing) POTASSIUM 2024-05-09 15:23 [facility] 3.4 mmol/l As of August 2022 testing method has changed, this may include reference ranges. ALBUMIN 2024-05-09 15:23 [facility] 3.7 g/dl As of August 2022 testing method has changed, this may include reference ranges. LIPASE 2024-05-09 15:23 [facility] 33 u/l As of August 2022 testing method has changed, this may include reference ranges. MEAN CORPUSCULAR HGB CONC 2024-05-09 15:23 [facility] 33.5 g/dl (missing) RED BLOOD COUNT 2024-05-09 15:23 [facility] 4.81 10 6/ul (missing) HCT - HEMATOCRIT 2024-05-09 15:23 [facility] [employer] 43.0 % (missing) URIC ACID 2024-05-09 15:23 [facility] 5.9 mg/dl As of August 2022 testing method has changed, this may include reference ranges. TOTAL PROTEIN 2024-05-09 15: [facility] [employer] 6.7 g/dl As of August 2022 testing method has changed, this may include reference ranges. ALKALINE PHOSPHATASE 2024-05-09 15:23 [facility] [employer] 64 iu/l As of August 2022 testing method has changed, this may include reference ranges. NEUTROPHILS # (AUTO) 2024-05-09 15:23 [facility] 8.0 10 3/ul (missing) CALCIUM 2024-05-09 15:23 [facility] 8.8 mg/dl As of August 2022 testing method has changed, this may include reference ranges. MEAN CORPUSCULAR VOLUME 2024-05-09 15:23 [place] [address]e [employer] 89.4 fl (missing) WHITE BLOOD COUNT 2024-05-09 15:23 [facility] 9.5 x10 3/ul (missing) MEAN PLATELET VOLUME 2024-05-09 15:23 [facility] 9.9 fl (missing) GFR - MDRD 2024-05-09 15:23 [facility] 94 (in g) Social History date description facility
[2024-06-25 14:44] LABS: BASOPHILS % (AUTO) 0.9 %; HGB - HEMOGLOBIN 9.4 g/dL (14.0-18.0); LYMPHOCYTES % (AUTO) 0.9 %; MEAN CORPUSCULAR HEMOGLOBIN 30.8 pg (27.0-31.0); MEAN CORPUSCULAR HGB CONC 34.8 g/dL (32.0-36.0); MEAN CORPUSCULAR VOLUME 88.5 fL (80.0-94.0); MEAN PLATELET VOLUME 9.1 fL (7.4-11.4); NEUTROPHILS % (AUTO) 91.4 %; PLT - PLATELET COUNT 283 10^3/uL (130-450); RED BLOOD COUNT 3.05 10^6/uL (4.70-6.10); RED CELL DISTRIBUTION WIDTH 15.6 % (12.0-15.0); WHITE BLOOD COUNT 2.2 x10^3/uL (4.8-10.8)
[2024-06-25 14:50] LABS: ABNORMAL LYMPHS % (MANUAL) 0 %
[2024-06-25] MEDS: METOPROLOL 5 MG/5 ML VIAL IVP STA (15:07)
[2024-06-25] MEDS: SODIUM CHLORIDE 0.9% 1,000 ML IV STA (15:09)
[2024-06-25 15:15] LABS: ALBUMIN 3.2 g/dL (3.2-5.5); BILIRUBIN,TOTAL 1.8 mg/dL (0.2-1.0); CALCIUM 8.9 mg/dL (8.5-10.3); CREATININE 0.7 mg/dL (0.6-1.3); POTASSIUM 3.1 mmol/L (3.5-4.5); TOTAL PROTEIN 6.3 g/dL (6.4-8.9)
--- NOTE | 2024-06-25 15:23 | XRAY Report ---
PROCEDURE: XR Chest 1V INDICATIONS: Sepsis TECHNIQUE: One view of the chest was acquired. COMPARISON: 02/21/2024. FINDINGS: Surgical changes and devices: Interval Port-A-Cath placement, the tip which projects in the SVC right atrial junction. Lungs and pleura: Very large right lung mass with associated right hilar adenopathy. No focal infiltrates. Mediastinum: Mediastinal contours appear normal. Heart size is normal. Bones and chest wall: No suspicious bony lesions. Overlying soft tissues appear unremarkable. IMPRESSION: Very large right lung mass with associated right hilar adenopathy. 2. No acute infiltrates identified. Reviewed by: Jacek Becerril MD on 06/25/2024 3:21 PM PDT Approved by: Jacek Becerril MD on 06/25/2024 3:21 PM PDT Station ID: [id number]
[2024-06-25 15:34] LABS: BAND NEUTROPHILS % (MANUAL) 14 %; DIFFERENTIAL COMMENT MANUAL DIFFERENTIAL; LYMPHOCYTES # (MANUAL) 0.2 10^3/uL (1.5-3.5); LYMPHOCYTES % (MANUAL) 9 %; MONOCYTES # (MANUAL) 0.1 10^3/uL (0.0-1.0); NEUTROPHILS # (MANUAL) 1.9 10^3/uL (1.5-6.6); PLATELET ESTIMATE, MANUAL NORMAL (130-450,000) (NORMAL); PLATELET MORPHOLOGY NORMAL APPEARANCE (NORMAL); RBC MORPHOLOGY (MULTIPLE) NORMAL APPEARANCE (NORMAL)
--- NOTE | 2024-06-25 16:23 | HISTORY & PHYSICAL EXAMINATION ---
Chief Complaint Chief Complaint Chief Complaint: Called by ER to return History of Present Illness Admitted From Admitted From:: Home History Obtained From Records Reviewed: EMR, paper records from [place] History obtained from: Patient, patient's at bedside Exam Limitations: None History of Present Illness HPI Comment/Other: Patient is a 73-year-old male with a history of recently diagnosed lung adenocarcinoma currently receiving chemotherapy and radiation who presents after [facility] stay. On Friday, patient presented to the emergency room at that time for fevers, chills, as well as a worsening productive cough. Blood cultures were drawn. Today, they received a call that they grew bacteria. They were advised to return to the ER. Records were reviewed1 out of 2 blood cultures grew MSSA. On Friday, he was discharged on Augmentin. He has been taking that since. However, he continues to have fevers. He also has a productive cough with some yellow to green sputum production. He states he has some pain with coughing across his chest. He does not feel his right heart racing. He has no chest pressure. He was previously on chemotherapy and radiation. He did not tolerate chemotherapy well. His oncologist is Dr. Mejia. This was stopped about a week ago. He does have a Mediport in place. He was receiving radiation daily for the last week. This was stopped a few days ago. He also was scheduled to have a MARIBEL done today, but he was unable to make the appointment. Besides the fever and cough, he also endorses a decreased appetite. His states that he has not been eating anything except for some scrambled eggs. He endorses some mild nausea. He also endorses diarrhea. Meds/Allgy Home Medications Ambulatory Orders Medication Instructions Recorded Confirmed apixaban 5 mg tablet (Eliquis) 5 mg PO BID 30 days #60 tabs 03/03/24 06/25/24 fluticasone propionate 50 2 spray intranasal DAILY 30 days 03/03/24 05/10/24 mcg/actuation nasal #16 grams spray,suspension metoprolol tartrate 50 mg tablet 50 mg PO BID 05/10/24 06/25/24 atorvastatin 40 mg tablet 40 mg PO QPM 30 days #30 tab s 05/11/24 06/25/24 Allergies Allergies Allergy/AdvReac Type Severity Reaction Status Date / Time Sulfa (Sulfonamide Allergy Mild Nausea Verified 06/25/24 14:02 Antibiotics) [facility] Active Problems All Active Problems (Updated 06/25/24 @ 16:36 by Zohra Shelley MD) Hyponatremia (Acute) Hypokalemia (Acute) Anemia (Acute) Sepsis (Acute) MSSA bacteremia (Acute) Bacteremia due to Gram-positive bacteria (Acute) Acute confusion (Acute) Weakness (Acute) Lung cancer (Acute) CVA (cerebral vascular accident) (Acute) Paroxysmal atrial fibrillation with rapid ventricular response (Acute) Medical History Medical History Environmental allergies Mass of right lung New onset atrial fibrillation Social History Social History Smoking Status: Former smoker If you are a former smoker, when did you quit? (Date/Year): 50 years ago quit Do you dip or chew tobacco?: No Do you vape?: No Relationship: Spouse Level: Independent Do you feel safe in your home environment?: Yes Suffered physical, verbal, emotional, or financial abuse?: No ETOH Use: Frequency: Daily Number of Amount/day: 5 ETOH Use Details: he states he drinks "probably more than I should" Substance Use: cannabis (any form) POLST Patient has POLST: Yes POLST Status: DNR Review of Systems Constitutional Reports: Fatigue, Fever, Chills, Malaise, Weakness and Weight loss; Denies: Poor appetite Eyes Denies: Pain, Irritation, Blurry vision, Vision loss, Diplopia or Eye discomfort Ears, nose, mouth, and throat Reports: Nasal discharge; Denies: Ear pain, Hearing loss, Tinnitus, Nose bleeds, Mouth lesions, Bleeding gums or Neck pain Cardiovascular Reports: Irregular heart rate, palpitations, shortness of breath with exertion and shortness of breath when lying down; Denies: chest pain, edema or Syncope Respiratory Reports: Shortness of breath and Sputum production; Denies: Cough, Wheezing or Apnea Gastrointestinal Reports: Diarrhea; Denies: Abdominal pain, Abdominal distention, Nausea, Vomiting, Heartburn or Constipation Genitourinary Denies: Painful urination, Urinary frequency, Urinary urgency, Nocturia or Blood in urine Musculoskeletal Reports: Back pain and Extremity pain; Denies: Neck pain, Extremity swelling or Joint pain Integumentary/Breast Denies: Rash, Itching, Dryness, Redness or Skin pain Neurological Reports: General weakness and Dizziness; Denies: Headache, Weakness in extremities, Numbness in extremities or Abnormal gait Psychiatric Denies: Depression, Anxiety, Mood swings or Panic attacks Endocrine Reports: Fatigue; Denies: Excessive urination or Excessive thirst Hematologic/Lymphatic Denies: Anemia, Easy bruising or Easy bleeding Allergic/Immunologic Denies: Hives, Tongue swelling, Facial swelling or Wheezing Prior Level of Functionality: Fully ambulatory and independent. Exam Exam Vital Signs: Vital Signs x48h Temp Pulse Resp BP Pulse Ox 06/25/24 15:45 106 H 22 129/81 92 06/25/24 15:30 102 H 20 117/84 95 06/25/24 15:19 106 H 18 118/74 92 06/25/24 14:43 117 H 16 107/72 95 06/25/24 14:02 99.5 F 88 18 93/54 L 96 Constitutional abnormal general appearance (chronically ill) and (frail appearing), no apparent distress, abnormal body habitus (underweight), no limitations and alert HENMT normocephalic and head/scalp atraumatic Eyes PERRL, EOMs intact bilaterally, conjunctivae normal and no papilledema Neck/C-Spine cervical spine nontender and thyroid normal Respiratory normal respiratory effort and rales noted (throughout) Cardiovascular heart rate abnormal (tachycardic) and rhythm abnormal (irregular) Irregularly irregular with tachycardia with heart rates in the 110s, no murmurs rubs or gallops Gastrointestinal abdomen normal to inspection and nontender to palpation Genitourinary no CVA tenderness Extremities normal to inspection, normal to palpation, no tenderness and full ROM Neurology no movement abnormality noted, no focal motor deficit noted, speech normal and coordination normal Psychiatry oriented x3 Skin skin color normal Conclusion/Plan Problem List (1) MSSA bacteremia: Plan: [facility]: 1 of 2 blood cultures grew MSSA. This was on Friday, the . He received a dose of Rocephin at that time. He was discharged on Augmentin. He returns today after a phone call stating the above. Continue cefazolin 2 g every 8 hours at this time. Repeat blood cultures ordered today, pending. Source is likely lung. Patient is not having any urinary symptoms at this time. Mediport with no erythema around the site, fluctuence, drainage. Plan was for MARIBEL in the outpatient setting today. Echo done 05/11 does not show any valvular heart disease or any heart failure. If repeat blood cultures are positive, patient will need Mediport removal, as well as a TTE. Patient will likely require 14-day course of IV antibiotics. Continue aggressive IV fluid resuscitation. (2) Sepsis: Plan: Leukopenia, as well as tachycardia. Management as above. Qualifiers: Sepsis type: methicillin susceptible Staphylococcus aureus Sepsis acute organ dysfunction status: without acute organ dysfunction Qualified Code(s): A 41.01 - Sepsis due to Methicillin susceptible Staphylococcus aureus (3) Paroxysmal atrial fibrillation with rapid ventricular response: Plan: Patient received 1 dose of IV metoprolol. Continue home oral metoprolol, Eliquis. Continue IV fluid resuscitation, normal saline at 100 cc an hour. (4) Anemia: Plan: Likely due to chemotherapy side effects. Continue to monitor. No active bleeding noted at this time. Qualifiers: Anemia type: unspecified type Qualified Code(s): D64.9 - Anemia, unspecified (5) Hypokalemia: Plan: Due to decreased p.o. intake, continue repletion and trending. (6) Hyponatremia: Plan: Due to decreased p.o. intake, continue repletion and trending. (7) Lung cancer: Plan: Patient diagnosed with right-sided lung adenocarcinoma. Follows with Dr. Mejia, oncologist. Was previously receiving chemotherapy, but this was stopped about a week ago. Last radiation session was on Friday. Family has been told next steps are immunotherapy. Qualifiers: Laterality: right Lung location: unspecified part of lung Qualified Code(s): C34.91 - Malignant neoplasm of unspecified part of right bronchus or lung Lab Results Lab results reviewed: Yes 06/25/24 14:34 06/25/24 14:34 Diagnostic Imaging Results Diagnostic Imaging Results: positive Final report reviewed EKG Results EKG Interpreted Independently: Yes Core Measures Anticipated LOS I expect patient to be DC'd or transferred within 96 hours.: Yes Issues Hospital Issues and Management Plan: None anticipated. DVT/VTE - Prophylaxis VTE/DVT Device ordered at admit?: Yes VTE/DVT Prophylaxis med ordered at admit?: Yes
--- OUTSIDE RECORDS SUMMARY | 2024-06-25 16:31 | EXTERNAL MEDICAL SUMMARY RPT | Continuity of Care Document ---
Author Organization [facility] Address [address] [place] [id number] Phone Problems date description facility 2024-03-30 15:03 Other nonspecific abnormal find ing of [facility] 2024-03-30 16:10 Secondary malignant neoplasm of [facility] 2024-03-30 16:10 Other nonspecific abnormal find ing of [facility] 2024-03-31 07:52 Secondary malignant neoplasm of [facility] 2024-03-31 07:52 Other nonspecific abnormal find ing of [facility] 2024-04-28 11:52 Secondary malignant neoplasm of [facility] 2024-04-28 11:52 Other nonspecific abnormal find ing of [facility] 2024-05-10 09:15 Malignant neoplasm o f unspecified part of unspecified bronchus or lung [facility] 2024-05-10 09:15 Encephalopathy, unspecified [facility] 2024-05-10 09:15 Paroxysmal atrial fibrillation [facility] 2024-05-10 09:15 Cerebral infarction, unspecifie d [facility] 2024-05-10 09:15 Unspecified symptoms and signs involving the nervous system [facility] 2024-05-10 09:15 Other [facility] 2024-05-10 09:15 Aphasia [facility] 2024-05-11 12:16 Malignant neoplasm o f unspecified part of unspecified bronchus or lung [facility] 2024-05-11 12:16 Encephalopathy, unspecified [facility] 2024-05-11 12:16 [facility]oxysmal atrial [facility]11 12:16 Cerebral infarction, unspecifie d [facility] 2024-05-11 12:16 Unspecified symptoms and signs involving the nervous system [facility] 2024-05-11 12:16 Other [facility]24-[facility] 12:16 [facility]phasia [facility] 2024-05-11 12:37 Malignant neoplasm o f unspecified part of unspecified bronchus or lung [facility] 2024-05-11 12:37 Encephalopathy, unspecified i [facility] 2024-05-11 12:37 Paroxysmal atrial fibrillation [facility] 2024-05-11 12:37 Cerebral infarction, unspecifie d [facility] 2024-05-11 12:37 Unspecified symptoms and signs involving the nervous system [facility] 2024-05-11 12:37 Other retention of urine [facility] 2024-05-11 12:37 Aphasia [facility] 2024-05-11 14:37 Malignant neoplasm o f unspecified part of unspecified bronchus or lung [facility] 2024-05-11 14:37 Encephalopathy, unspecified [facility][x+1] 2024-05-11 14:37 Paroxysmal atrial fibrillation [facility] 2024-05-11 14:37 Cerebral infarction, unspecifie d [facility] 2024-05-11 14:37 Unspecified symptoms and signs involving the nervous system [facility] 2024-05-11 14:37 Other retention of urine [facility] 2024-05-11 14:37 Aphasia [facility] 2024-05-11 15:59 Malignant neoplasm o f unspecified part of unspecified bronchus or lung [facility] 2024-05-11 15:59 Encephalopathy, unspecified [facility][x+1] 2024-05-11 15:59 Paroxysmal atrial fibrillation [facility] 2024-05-11 15:59 Cerebral infarction, unspecifie d [facility] 2024-05-11 15:59 Unspecified symptoms and signs involving the nervous system [facility] 2024-05-11 15:59 Other retention of urine [facility] 2024-05-11 15:59 Aphasia [facility] 2024-05-11 16:02 Malignant neoplasm o f unspecified part of unspecified bronchus or lung [facility] 2024-05-11 16:02 Encephalopathy, unspecified [facility] 2024-05-11 16:02 Paroxysmal atrial fibrillation [facility] 2024-05-11 16:02 Cerebral infarction, unspecifie d [facility] 2024-05-11 16:02 Unspecified symptoms and signs involving the nervous system [facility] 2024-05-11 16:02 Other retention of urine [facility] 2024-05-11 16:02 Aphasia [facility] 2024-05-11 17:17 Malignant neoplasm o f unspecified part of unspecified bronchus or lung [facility] 2024-05-11 17:17 Encephalopathy, unspecified i [facility] 2024-05-11 17:17 Paroxysmal atrial fibrillation [facility] 2024-05-11 17:17 Cerebral infarction, unspecifie d [facility] 2024-05-11 17:17 Unspecified symptoms and signs involving the nervous system [facility] 2024-05-11 17:17 Other retention of urine [facility] 2024-05-11 17:17 Aphasia [facility] 2024-05-11 17:53 Malignant neoplasm o f unspecified part of unspecified bronchus or lung [facility] 2024-05-11 17:53 Encephalopathy, unspecified [facility] 2024-05-11 17:53 Paroxysmal atrial fibrillation [facility] 2024-05-11 17:53 Cerebral infarction, unspecifie d [facility] 2024-05-11 17:53 Unspecified symptoms and signs involving the nervous system [facility] 2024-05-11 17:53 Other retention of urine [facility] 2024-05-11 17:53 Aphasia [facility] 2024-05-11 17:54 Malignant neoplasm o f unspecified part of unspecified bronchus or lung [facility] 2024-05-11 17:54 Encephalopathy, unspecified [facility] 2024-05-11 17:54 Paroxysmal atrial fibrillation [facility] 2024-05-11 17:54 Cerebral infarction, unspecifie d [facility] 2024-05-11 17:54 Unspecified symptoms and signs involving the nervous system [facility] 2024-05-11 17:54 Other retention of urine [facility] 2024-05-11 17:54 Aphasia [facility] 2024-05-12 08:35 Malignant neoplasm o f unspecified part of unspecified bronchus or lung [facility] 2024-05-12 08:35 Encephalopathy, unspecified i [facility] 2024-05-12 08:35 Paroxysmal atrial fibrillation [facility] 2024-05-12 08:35 Cerebral infarction, unspecifie d [facility] 2024-05-12 08:35 [facility]ial [facility] 2024-05-12 08:35 Other symptoms and s igns involving the musculoskeletal system [facility] 2024-05-12 08:35 Unspecified symptoms and signs involving the nervous system [facility] 2024-05-12 08:35 Other retention of urine [facility] 2024-05-12 08:35 Aphasia [facility] 2024-05-12 08:35 [facility]phasia [facility] 2024-05-14 12:03 Altered mental status, unspecif ied [facility] 2024-06-09 11:56 Altered mental status, unspecif ied [facility] 2024-06-09 11:56 Weakness [facility] 2024-06-15 10:05 Fever, unspecified [facility] th Results/Labs test date facility value unit notes Result panel 1 NUCLEATED RED BLOOD CELLS AUTO 2024-05-09 15:23 [facility] 0.0 /100wbc (missing) BASOPHILS # (AUTO) 2024-05-09 15:23 [facility] 0.0 10 3/ul (missing) MONOCYTES # (AUTO) 2024-05-09 15:23 [facility] 0.0 10 3/ul (missing) NRBC ABSOLUTE COUNT (AUTO) 2024-05-09 15:23 [facility] 0.00 x10 3/ul (missing) EOSINOPHILS # (AUTO) 2024-05-09 15:23 [facility] 0.2 10 3/ul (missing) CREATININE 2024-05-09 15:23 [facility] 0.8 mg/dl As of August 2022 testing method has changed, this may include reference ranges. BILIRUBIN,TOTAL 2024-05-09 15:23 [facility] 0.9 mg /dl As of August 2022 testing method has changed, this may include reference ranges. LYMPHOCYTES # (AUTO) 2024-05-09 15:23 [facility] 1.1 10 3/ul (missing) ALBUMIN/GLOBULIN RATIO 2024-05-09 15:23 [facility] 1.2 (missing) (missing) GLUCOSE 2024-05-09 15:23 [facility] 108 mg/dl As of August 2022 testing method has changed, this may include reference ranges. AST ASPARTATE AMINOTRANSFERASE 2024-05-09 15:23 [facility] 12 iu/l As of August 2022 testing method has changed, this may include reference ranges. ANION GAP 2024-05-09 15:23 [facility] 12.0 (missing ) (missing) SODIUM 2024-05-09 15:23 [facility] 130 mmol/l As of August 2022 testing method has changed, this may include reference ranges. ALT ALANINE AMINOTRANSFERASE 2024-05-09 15:23 [facility] 14 iu/l As of August 2022 testing method has changed, this may include reference ranges. HGB - HEMOGLOBIN 2024-05-09 15:23 [facility] 14.4 g /dl (missing) RED CELL DISTRIBUTION WIDTH 2024-05-09 15:23 [facility] 14.7 % (missing) CARBON DIOXIDE - CO2 2024-05-09 15:23 [facility] 23 mmol/l As of August 2022 testing method has changed, this may include reference ranges. BUN - BLOOD UREA NITROGEN 2024-05-09 15:23 [facility] 24 mg/dl As of Aug testing method has changed, this may include reference ranges. MEAN CORPUSCULAR HEMOGLOBIN 2024-05-09 15:23 [facility] 29.9 pg (missing) PLT - PLATELET COUNT 2024-05-09 15:23 [facility] 299 10 3/ul (missing) GLOBULIN 2024-05-09 15:23 [facility] 3.0 g/dl (missing) POTASSIUM 2024-05-09 15:23 [facility] 3.4 mmol/l As of August 2022 testing method has changed, this may include reference ranges. ALBUMIN 2024-05-09 15:23 [facility] 3.7 g/dl As of August 2022 testing method has changed, this may include reference ranges. LIPASE 2024-05-09 15:23 [facility] 33 u/l As of August 2022 testing method has changed, this may include reference ranges. MEAN CORPUSCULAR HGB CONC 2024-05-09 15:23 [facility] 33.5 g/dl (missing) RED BLOOD COUNT 2024-05-09 15:23 [facility] 4.81 10 6/ul (missing) HCT - HEMATOCRIT 2024-05-09 15:23 [facility] [employer] 43.0 % (missing) URIC ACID 2024-05-09 15:23 [facility] 5.9 mg/dl As of August 2022 testing method has changed, this may include reference ranges. TOTAL PROTEIN 2024-05-09 15: [facility] [employer] 6.7 g/dl As of August 2022 testing method has changed, this may include reference ranges. ALKALINE PHOSPHATASE 2024-05-09 15:23 [facility] [employer] 64 iu/l As of August 2022 testing method has changed, this may include reference ranges. NEUTROPHILS # (AUTO) 2024-05-09 15:23 [facility] 8.0 10 3/ul (missing) CALCIUM 2024-05-09 15:23 [facility] 8.8 mg/dl As of August 2022 testing method has changed, this may include reference ranges. MEAN CORPUSCULAR VOLUME 2024-05-09 15:23 [facility] [employer] 89.4 fl (missing) WHITE BLOOD COUNT 2024-05-09 15:23 [facility] 9.5 x10 3/ul (missing) MEAN PLATELET VOLUME 2024-05-09 15:23 [facility] 9.9 fl (missing) GFR - MDRD 2024-05-09 15:23 [facility] 94 (in g) Social History date description facility
[2024-06-25] MEDS ORDERED: ONDANSETRON 4 MG/2 ML VIAL IVP PRN (16:46)
[2024-06-25] MEDS ORDERED: ONDANSETRON ODT 4 MG TABLET TL PRN (16:46)
[2024-06-25] MEDS: VANCOMYCIN INJ 1.5 GM in SODIUM CHLORIDE 0.9% 500 ML IV STA (17:33)
[2024-06-25] MEDS: guaiFENesin/CODEINE 5 ML UDC PO PRN (17:43)
[2024-06-25] MEDS: METOPROLOL TARTRATE 50 MG TABLET PO SCH (17:45)
[2024-06-25] MEDS: POTASSIUM CHLORIDE 20 MEQ TABLET PO ONE (17:46)
[2024-06-25] MEDS: SODIUM CHLORIDE 0.9% 1,000 ML IV SCH (17:48)
[2024-06-25] MEDS: SODIUM CHLORIDE FLUSH 0.9% 10 ML SYRINGE IVP SCH (17:52)
[2024-06-25] MEDS: SODIUM CHLORIDE 0.9% 500 ML IV ONE (18:30)
[2024-06-25] MEDS: METOPROLOL 5 MG/5 ML VIAL IVP ONE (18:32)
[2024-06-25 20:30] LABS: BILIRUBIN,URINE SMALL (NEGATIVE); GLUCOSE, URINE (UA) 100 mg/dL (NEGATIVE); KETONES,URINE (UA) NEGATIVE (NEGATIVE); LEUKOCYTE ESTERASE, URINE NEGATIVE (NEGATIVE); NITRITE,URINE NEGATIVE (NEGATIVE); OCCULT BLOOD,URINE TRACE-INTA (NEGATIVE); PROTEIN,URINE 100 mg/dL (NEGATIVE); UROBILINOGEN,URINE 0.2 (NORMAL) E.U./dL (NORMAL)
[2024-06-25 20:36] LABS: CLARITY,URINE HAZY (CLEAR)
[2024-06-25 20:44] LABS: AMORPHOUS SEDIMENT,UR Moderate /LPF; BACTERIA,URINE Few /HPF (None Seen); RBC,URINE 0-5 /HPF (0-5); SQUAMOUS EPITHELIAL CELL,UR FEW Squamous (<= Few); WBC,URINE 0-3 /HPF (0-3)
[2024-06-25] MEDS: APIXABAN 5 MG TABLET PO SCH (21:37)
[2024-06-25] MEDS: ATORVASTATIN 40 MG TABLET PO SCH (21:37)
[2024-06-25] MEDS: FAMOTIDINE 20 MG/2 ML VIAL IVP SCH (21:39)
[2024-06-25] MEDS: ceFAZolin 2 GM VIAL IVP SCH (21:39)
[2024-06-26] MEDS: HYDROcod/ACETAM 5/325 MG TABLET PO PRN (00:10)
[2024-06-26 05:19] LABS: HCT - HEMATOCRIT 25.1 % (42.0-52.0); HGB - HEMOGLOBIN 8.1 g/dL (14.0-18.0); MEAN CORPUSCULAR HEMOGLOBIN 30.1 pg (27.0-31.0); MEAN CORPUSCULAR HGB CONC 32.3 g/dL (32.0-36.0); MEAN CORPUSCULAR VOLUME 93.3 fL (80.0-94.0); RED BLOOD COUNT 2.69 10^6/uL (4.70-6.10); RED CELL DISTRIBUTION WIDTH 15.9 % (12.0-15.0)
[2024-06-26 05:29] LABS: WHITE BLOOD COUNT 1.9 x10^3/uL (4.8-10.8)
[2024-06-26 05:36] LABS: CREATININE 0.7 mg/dL (0.6-1.3)
[2024-06-26] MEDS: METOPROLOL TARTRATE 50 MG TABLET PO SCH (09:07)
--- NOTE | 2024-06-26 09:13 | PHARMACY PROGRESS NOTE ---
Best Possible Medication History Admit Date and Time: 06/25/24 1620 Home Medications Medication Instructions Recorded Confirmed Type apixaban 5 mg tablet (Eliquis) 5 mg PO BID 30 days #60 tabs 03/03/24 06/25/24 Rx metoprolol tartrate 50 mg tablet 50 mg PO BID 05/10/24 06/25/24 History atorvastatin 40 mg tablet 40 mg PO QPM 30 days #30 tab s 05/11/24 06/25/24 Rx triamcinolone acetonide 55 mcg 1 spray intranasal UMA Y PRN 06/26/24 06/26/24 History nasal spray aerosol (Nasacort) allergy symptoms Processed by: Pharmacy Medications reviewed in ED?: No Medication History completed: Yes Patient Interview: Completed Secondary Source(s): Pharmacy records and Insurance records [facility] Statement: As the person ultimately responsible for medication therapy, providers are able to order a medication from an existing home medication list in [facility] via the "Reconcile Routine" prior to Confirmation of that medication by academic support assistant. Such practice is discouraged except when the physician, in their clinical judgment, deems that a medical need exists for a medication without regard to previous use.
[2024-06-26] MEDS: POTASSIUM CHLORIDE 20 MEQ TABLET PO ONE (09:18)
[2024-06-26] MEDS: FLUTICASONE NASAL SPRAY NAS SCH (09:19)
--- NOTE | 2024-06-26 10:08 | PROVIDER PROGRESS NOTE ---
Subjective Subjective Subjective: Today, patient states that he feels worse. When asked to elaborate, he just states that he feels more fatigued. He has no fevers or chills. His cough is about the same as yesterday. He does have some pleuritic chest pain when he is coughing. He has a very poor appetite, and is not able to eat or drink because he does not feel like it. Current Medications Current Medications Current Medications: Current Medications Generic Name Dose Route Start Last Admin Trade Name Freq PRN Reason Stop Dose Admin Acetaminophen 650 mg 06/25/24 16:46 Acetaminophen 325 Mg Tablet PO Q4HR PRN Pain 1 to 4, or Fever Hydrocodone Bitart/Acetaminophen 1 tab 06/25/24 16:46 06/26/24 09:26 Hydrocod/Acetam 5/325 Mg Tablet PO 1 tab Q4HR PRN Administration Pain 5 to 7 Apixaban 5 mg 06/25/24 21:00 06/26/24 09:18 Apixaban 5 Mg Tablet PO 5 mg BID STEPHIE Administration Atorvastatin Calcium 40 mg 06/25/24 21:00 06/25/24 21:37 Atorvastatin 40 Mg Tablet PO 40 mg QPM STEPHIE Administration Cefazolin Sodium 2 gm 06/25/24 22:00 06/26/24 06:27 Cefazolin 2 Gm Vial IVP 2 gm Q8HR STEPHIE Administration Famotidine 20 mg 06/25/24 21:00 06/26/24 09:18 Famotidine 20 Mg/2 Ml Vial IVP 20 mg BID STEPHIE Administration Fluticasone Propionate 2 sprays 06/26/24 09:00 06/26/24 09:19 Fluticasone Nasal [place] 2 sprays DAILY STEPHIE Administration Guaifenesin/Codeine Phosphate 5 ml 06/25/24 16:20 06/26/24 03:46 Guaifenesin/Codeine 5 Ml Udc PO 5 ml Q8HR PRN Administration Cough Sodium Chloride 1,000 mls @ 100 mls/hr 06/25/24 17:00 06/26/24 03:46 Normal Saline 0.9% IV 100 mls/hr .Q10H STEPHIE Administration Metoprolol Tartrate 100 mg 06/26/24 09:00 06/26/24 09:07 Metoprolol Tartrate 50 Mg Tablet PO 100 mg BID STEPHIE Administration Ondansetron HCl 4 mg 06/25/24 16:46 Ondansetron Odt 4 Mg Tablet TL Q6HR PRN Nausea / Vomiting Ondansetron HCl 4 mg 06/25/24 16:46 Ondansetron 4 Mg/2 Ml Vial IVP Q6HR PRN Nausea / Vomiting Sodium Chloride 10 ml 06/25/24 16:46 Sodium Chloride Flush 0.9% 10 Ml Syringe IVP PRN PRN NEEDED PER PROVIDER ORDERS Sodium Chloride 10 ml 06/25/24 17:00 06/26/24 09:19 Sodium Chloride Flush 0.9% 10 Ml Syringe IVP 10 ml 0100,0900,1700 [facility] Administration Objective Vital Signs/Intake & Output Reviewed Vital Signs: Yes Vital Signs: Vital Signs x48h Temp Pulse Pulse Resp BP BP Pulse Ox 06/26/24 10:06 95 16 107/74 95 06/26/24 09:10 112 H 121/79 06/26/24 09:07 112 H 121/79 06/26/24 07:56 98.8 F 113 H 18 135/92 H 93 06/26/24 05:00 97.7 F 108 H 20 131/90 H 94 Intake & Output: Intake & Output 06/23/24 06/24/24 06/25/24 06/26/24 23:59 23:59 23:59 23:59 Intake Total 2039 / 2039 1095 / 1095 Output Total 200 / 200 150 / 150 Balance 1840 / 1840 945 / 945 Weight (kg) 73 kg Objective General Appearance: positive No acute distress, Alert and Lethargic (fatigued) Eyes Bilateral: positive Normal inspection ENT: positive ENT inspection nml, Pharynx nml and No signs of dehydration Neck: positive Nml inspection, Thyroid nml and No JVD Respiratory: positive Chest non-tender, No respiratory distress, Breath sounds nml and Other (dimished breath sounds RUL) Cardiovascular: positive No murmur, No gallop, Irregularly irregular and Tachycardia Abdomen: positive Non-tender, No organomegaly, Nml bowel sounds and No distention Skin: positive Color nml Extremities: positive Non-tender and No pedal edema Neurologic/Psychiatric: positive Oriented x3, CN's nml (2-12) and Mood/affect nml Lab Results 06/26/24 04:59 06/26/24 04:59 Other Labs: Lab Results x24hrs 06/26/24 06/25/24 06/25/24 Range/Units 04:59 20:12 20:12 WBC 1.9 L* (4.8-10.8) x10^3/uL RBC 2.69 L (4.70-6.10) 10^6/uL Hgb 8.1 L (14.0-18.0) g/dL Hct 25.1 L (42.0-52.0) % MCV 93.3 (80.0-94.0) fL MCH 30.1 (27.0-31.0) pg MCHC 32.3 (32.0-36.0) g/dL RDW 15.9 H (12.0-15.0) % Plt Count 240 (130-450) 10^3/uL MPV 9.0 (7.4-11.4) fL Neut # (Auto) Lymph # (Auto) [place] # (Auto) Eos # (Auto) Baso # (Auto) Absolute Nucleated RBC Total Counted Band Neuts % (Manual) (0 - 10) % Abnorm Lymph % (Manual) % Nucleated RBC % Neutrophils # (Manual) (1.5-6.6) 10^3/uL Lymphocytes # (Manual) (1.5-3.5) 10^3/uL Monocytes # (Manual) (0.0-1.0) 10^3/uL Eosinophils # (Manual) (0-0.7) 10^3/uL Basophils # (Manual) (0-0.1) 10^3/uL Differential Comment Platelet Estimate (NORMAL) Platelet Morphology (NORMAL) RBC Morph Micro Appear (NORMAL) Sodium 131 L (135-145) mmol/L Potassium 3.0 L (3.5-4.5) mmol/L Chloride 99 L (101-111) mmol/L Carbon Dioxide 24 (21-32) mmol/L Anion Gap 8.0 (6-13) BUN 20 (6-20) mg/dL Creatinine 0.7 (0.6-1.3) mg/dL Estimated GFR (MDRD) 110 (>89) Glucose 112 H (74-104) mg/dL Lactic Acid (0.5-2.2) mmol/L Calcium 8.0 L (8.5-10.3) mg/dL Magnesium 2.0 (1.7-2.3) mg/dL Total Bilirubin (0.2-1.0) mg/dL AST (10-42) IU/L ALT (10-60) IU/L Alkaline Phosphatase (42-121) IU/L Total Protein (6.4-8.9) g/dL Albumin (3.2-5.5) g/dL Globulin (2.1-4.2) g/dL Albumin/Globulin Ratio (1.0-2.2) Urine Color DARK YELLOW Urine Clarity HAZY (CLEAR) Urine pH 6.0 (5.0-7.5) PH Ur Specific [place] >=1.030 H (1.002-1.030) Urine Protein 100 H (NEGATIVE) mg/dL Urine Glucose (UA) 100 H (NEGATIVE) mg/dL Urine Ketones NEGATIVE (NEGATIVE) mg/dL Urine Occult Blood [place] (NEGATIVE) Urine Nitrite NEGATIVE (NEGATIVE) Urine Bilirubin SMALL H (NEGATIVE) Urine Urobilinogen 0.2 (NORMAL) (NORMAL) E.U./dL Ur Leukocyte Esterase NEGATIVE (NEGATIVE) Urine RBC 0-5 (0-5) /HPF Urine WBC 0-3 (0-3) /HPF Ur Squamous Epith Cells FEW Squamous (<= Few) Amorphous Sediment Moderate /LPF Urine Bacteria Few (None Seen) /HPF Urine Casts 3-5 Hyaline Casts 3-5 Fine Granular /LPF Urine Culture Comments NOT INDICATED 06/25/24 Range/Units 14:34 WBC 2.2 L (4.8-10.8) x10^3/uL RBC 3.05 L (4.70-6.10) 10^6/uL Hgb 9.4 L (14.0-18.0) g/dL Hct 27.0 L (42.0-52.0) % MCV 88.5 (80.0-94.0) fL MCH 30.8 (27.0-31.0) pg MCHC 34.8 (32.0-36.0) g/dL RDW 15.6 H (12.0-15.0) % Plt Count 283 (130-450) 10^3/uL MPV 9.1 (7.4-11.4) fL Neut # (Auto) Not Reportable Lymph # (Auto) Not Reportable [place] # (Auto) Not Reportable Eos # (Auto) Not Reportable Baso # (Auto) Not Reportable Absolute Nucleated RBC Not Reportable Total Counted 100 Band Neuts % (Manual) 14 H (0 - 10) % Abnorm Lymph % (Manual) 0 % Nucleated RBC % Not Reportable Neutrophils # (Manual) 1.9 (1.5-6.6) 10^3/uL Lymphocytes # (Manual) 0.2 L (1.5-3.5) 10^3/uL Monocytes # (Manual) 0.1 (0.0-1.0) 10^3/uL Eosinophils # (Manual) 0.0 (0-0.7) 10^3/uL Basophils # (Manual) 0.0 (0-0.1) 10^3/uL Differential Comment MANUAL DIFFERENTIAL Platelet Estimate NORMAL (130-450,000) (NORMAL) Platelet Morphology NORMAL APPEARANCE (NORMAL) RBC Morph Micro Appear NORMAL APPEARANCE (NORMAL) Sodium 130 L (135-145) mmol/L Potassium 3.1 L (3.5-4.5) mmol/L Chloride 94 L (101-111) mmol/L Carbon Dioxide 25 (21-32) mmol/L Anion Gap 11.0 (6-13) BUN 22 H (6-20) mg/dL Creatinine 0.7 (0.6-1.3) mg/dL Estimated GFR (MDRD) 110 (>89) Glucose 126 H (74-104) mg/dL Lactic Acid 1.7 (0.5-2.2) mmol/L Calcium 8.9 (8.5-10.3) mg/dL Magnesium (1.7-2.3) mg/dL Total Bilirubin 1.8 H (0.2-1.0) mg/dL AST 103 H (10-42) IU/L ALT 55 (10-60) IU/L Alkaline Phosphatase 67 (42-121) IU/L Total Protein 6.3 L (6.4-8.9) g/dL Albumin 3.2 (3.2-5.5) g/dL Globulin 3.1 (2.1-4.2) g/dL Albumin/Globulin Ratio 1.0 (1.0-2.2) Urine Color Urine Clarity (CLEAR) Urine pH (5.0-7.5) PH Ur Specific [place] (1.002-1.030) Urine Protein (NEGATIVE) mg/dL Urine Glucose (UA) (NEGATIVE) mg/dL Urine Ketones (NEGATIVE) mg/dL Urine Occult Blood (NEGATIVE) Urine Nitrite (NEGATIVE) Urine Bilirubin (NEGATIVE) Urine Urobilinogen (NORMAL) E.U./dL Ur Leukocyte Esterase (NEGATIVE) Urine RBC (0-5) /HPF Urine WBC (0-3) /HPF Ur Squamous Epith Cells (<= Few) Amorphous Sediment /LPF Urine Bacteria (None Seen) /HPF Urine Casts /LPF Urine Culture Comments Diagnostic Imaging Diagnostic Imaging Results: positive Final report reviewed Assessment/Plan Problem List (1) MSSA bacteremia: Impression: Records reviewed from [facility] emergency room visit: 1 of 2 blood cultures grew MSSA. This was on Friday, the . He received a dose of Rocephin at that time. He was discharged on Augmentin. He returns today after a phone call stating the above. Continue cefazolin 2 g every 8 hours at this time. Repeat blood cultures ordered 06/26, pending. Source is likely lung. Patient is not having any urinary symptoms at this time. Mediport with no erythema around the site, fluctuence, drainage. Plan was for MARIBEL in the outpatient setting today. Echo done 05/11 does not show any valvular heart disease or any heart failure. If repeat blood cultures are positive, patient will need Mediport removal, as well as a MARIBEL. Patient will likely require 14-day course of IV antibiotics. Continue aggressive IV fluid resuscitation. (2) Sepsis: Impression: Leukopenia, as well as tachycardia. Management as above. Qualifiers: Sepsis acute organ dysfunction status: without acute organ dysfunction Sepsis type: methicillin susceptible Staphylococcus aureus Qualified Code(s): A 41.01 - Sepsis due to Methicillin susceptible Staphylococcus aureus (3) Paroxysmal atrial fibrillation with rapid ventricular response: Impression: Patient received 1 dose of IV metoprolol. Continue home oral metoprolol, Eliquis. This morning, I increased his metoprolol to 100mg BID from 50mg BID as he remained in RVR. Continue IV fluid resuscitation, normal saline at 100 cc an hour. (4) Anemia: Impression: Likely due to chemotherapy side effects. Continue to monitor. No active bleeding noted at this time. Qualifiers: Anemia type: unspecified type Qualified Code(s): D64.9 - Anemia, unspecified (5) Hypokalemia: Impression: Due to decreased p.o. intake, continue repletion and trending. (6) Hyponatremia: Impression: Due to decreased p.o. intake, continue repletion and trending. (7) Lung cancer: Impression: Patient diagnosed with right-sided lung adenocarcinoma. Follows with Dr. Mejia, oncologist. Was previously receiving chemotherapy, but this was stopped about a week ago. Last radiation session was on Friday. Family has been told next steps are immunotherapy. Qualifiers: Laterality: right Lung location: unspecified part of lung Qualified Code(s): C34.91 - Malignant neoplasm of unspecified part of right bronchus or lung
[2024-06-26] MEDS: METOPROLOL 5 MG/5 ML VIAL IVP ONE (11:38)
[2024-06-27] MEDS: BENZOCAINE/MENTHOL LOZENGE MM PRN (00:42)
[2024-06-27] MEDS: BENZONATATE 100 MG CAPSULE PO PRN (00:42)
[2024-06-27 05:17] LABS: ALBUMIN 2.6 g/dL (3.2-5.5); ALBUMIN/GLOBULIN RATIO 1.1 (1.0-2.2); BILIRUBIN,TOTAL 1.3 mg/dL (0.2-1.0); CREATININE 0.5 mg/dL (0.6-1.3); MAGNESIUM 1.8 mg/dL (1.7-2.3); POTASSIUM 3.6 mmol/L (3.5-4.5)
[2024-06-27 07:34] LABS: HCT - HEMATOCRIT 24.5 % (42.0-52.0); HGB - HEMOGLOBIN 8.1 g/dL (14.0-18.0); MEAN CORPUSCULAR HEMOGLOBIN 30.9 pg (27.0-31.0); MEAN CORPUSCULAR HGB CONC 33.1 g/dL (32.0-36.0); MEAN CORPUSCULAR VOLUME 93.5 fL (80.0-94.0); RED BLOOD COUNT 2.62 10^6/uL (4.70-6.10); RED CELL DISTRIBUTION WIDTH 16.1 % (12.0-15.0); WHITE BLOOD COUNT 2.9 x10^3/uL (4.8-10.8)
[2024-06-27] MEDS: FAMOTIDINE 20 MG TABLET PO SCH (08:32)
--- NOTE | 2024-06-27 11:29 | PROVIDER PROGRESS NOTE ---
Subjective Subjective Subjective: Today, patient states that he feels worse. When asked to elaborate, he just states that he feels more fatigued. He has no fevers or chills. His cough is about the same as yesterday. He does have some pleuritic chest pain when he is coughing. He has a very poor appetite, and is not able to eat or drink because he does not feel like it. He has not been able to get much sleep, and requests a sleep aid at night. Will try melatonin, and if that does not work, will trial low-dose Ambien. We also talked about his long-term goals of care. He understands that the neck step would be immunotherapy. 1 that call his oncologist and speak with them about this. However, patient is also interested in a hospice informational. He is very fatigued at this time, and does not know how much longer he would like to continue treatment. Current Medications Current Medications Current Medications: Current Medications Generic Name Dose Route Start Last Admin Trade Name Freq PRN Reason Stop Dose Admin Acetaminophen 650 mg 06/25/24 16:46 Acetaminophen 325 Mg Tablet PO Q4HR PRN Pain 1 to 4, or Fever Hydrocodone Bitart/Acetaminophen 1 tab 06/25/24 16:46 06/27/24 08:35 Hydrocod/Acetam 5/325 Mg Tablet PO 1 tab Q4HR PRN Administration Pain 5 to 7 Apixaban 5 mg 06/25/24 21:00 06/27/24 08:32 Apixaban 5 Mg Tablet PO 5 mg BID STEPHIE Administration Atorvastatin Calcium 40 mg 06/25/24 21:00 06/26/24 21:02 Atorvastatin 40 Mg Tablet PO 40 mg QPM STEPHIE Administration Benzonatate 100 mg 06/27/24 00:28 06/27/24 08:36 Benzonatate 100 Mg Capsule PO 100 mg TID PRN Administration Cough Cefazolin Sodium 2 gm 06/25/24 22:00 06/27/24 05:44 Cefazolin 2 Gm Vial IVP 2 gm Q8HR STEPHIE Administration Famotidine 20 mg 06/27/24 09:00 06/27/24 08:32 Famotidine 20 Mg Tablet PO 20 mg BID STEPHIE Administration Fluticasone Propionate 2 sprays 06/26/24 09:00 06/27/24 08:32 Fluticasone Nasal Aspen LEXIS 2 sprays DAILY STEPHIE Administration Guaifenesin/Codeine Phosphate 5 ml 06/25/24 16:20 06/27/24 05:44 Guaifenesin/Codeine 5 Ml Udc PO 5 ml Q8HR PRN Administration Cough Sodium Chloride 1,000 mls @ 100 mls/hr 06/25/24 17:00 06/27/24 08:56 Normal Saline 0.9% IV 100 mls/hr .Q10H STEPHIE Administration Metoprolol Tartrate 100 mg 06/26/24 09:00 06/27/24 08:32 Metoprolol Tartrate 50 Mg Tablet PO 100 mg BID STEPHIE Administration Ondansetron HCl 4 mg 06/25/24 16:46 Ondansetron Odt 4 Mg Tablet TL Q6HR PRN Nausea / Vomiting Ondansetron HCl 4 mg 06/25/24 16:46 Ondansetron 4 Mg/2 Ml Vial IVP Q6HR PRN Nausea / Vomiting Sodium Chloride 10 ml 06/25/24 16:46 Sodium Chloride Flush 0.9% 10 Ml Syringe IVP PRN PRN NEEDED PER PROVIDER ORDERS Sodium Chloride 10 ml 06/25/24 17:00 06/27/24 08:58 Sodium Chloride Flush 0.9% 10 Ml Syringe IVP Not Given 0100,0900,1700 STEPHIE Throat Lozenges 1 lozenge 06/27/24 00:28 06/27/24 08:36 Benzocaine/Menthol Lozenge MM 1 lozenge Q2HR PRN Administration Mouth Sore Pain Objective Vital Signs/Intake & Output Reviewed Vital Signs: Yes Vital Signs: Vital Signs x48h Temp Pulse Pulse Resp BP BP Pulse Ox 06/27/24 08:32 122 H 111/74 06/27/24 07:55 97.9 F 123 H 20 111/74 96 06/27/24 05:00 98.8 F 96 18 125/79 97 Intake & Output: Intake & Output 06/24/24 06/25/24 06/26/24 06/27/24 23:59 23:59 23:59 23:59 Intake Total 2039 4370 / 4370 1472 / 1472 Output Total 200 / 200 975 / 975 625 / 625 Balance 1840 / 1840 3395 / 3395 847 / 847 Weight (kg) 73 kg Objective General Appearance: positive No acute distress, Alert and Lethargic (fatigued) Eyes Bilateral: positive Normal inspection ENT: positive ENT inspection nml, Pharynx nml and No signs of dehydration Neck: positive Nml inspection, Thyroid nml and No JVD Respiratory: positive Chest non-tender, No respiratory distress, Breath sounds nml and Other (dimished breath sounds RUL) Cardiovascular: positive No murmur, No gallop, Irregularly irregular and Tachycardia Abdomen: positive Non-tender, No organomegaly, Nml bowel sounds and No distention Skin: positive Color nml Extremities: positive Non-tender and No pedal edema Neurologic/Psychiatric: positive Oriented x3, CN's nml (2-12) and Mood/affect nml Lab Results 06/27/24 05:00 06/27/24 04:40 Other Labs: Lab Results x24hrs 06/27/24 06/27/24 Range/Units 05:00 04:40 WBC 2.9 L (4.8-10.8) x10^3/uL RBC 2.62 L (4.70-6.10) 10^6/uL Hgb 8.1 L (14.0-18.0) g/dL Hct 24.5 L (42.0-52.0) % MCV 93.5 (80.0-94.0) fL MCH 30.9 (27.0-31.0) pg MCHC 33.1 (32.0-36.0) g/dL RDW 16.1 H (12.0-15.0) % Plt Count 222 (130-450) 10^3/uL MPV 10.0 (7.4-11.4) fL Sodium 134 L (135-145) mmol/L Potassium 3.6 (3.5-4.5) mmol/L Chloride 102 (101-111) mmol/L Carbon Dioxide 26 (21-32) mmol/L Anion Gap 6.0 (6-13) BUN 12 (6-20) mg/dL Creatinine 0.5 L (0.6-1.3) mg/dL Estimated GFR (MDRD) 163 (>89) Glucose 112 H (74-104) mg/dL Calcium 8.0 L (8.5-10.3) mg/dL Magnesium 1.8 (1.7-2.3) mg/dL Total Bilirubin 1.3 H (0.2-1.0) mg/dL AST 110 H (10-42) IU/L ALT 55 (10-60) IU/L Alkaline Phosphatase 98 (42-121) IU/L Total Protein 5.0 L (6.4-8.9) g/dL Albumin 2.6 L (3.2-5.5) g/dL Globulin 2.4 (2.1-4.2) g/dL Albumin/Globulin Ratio 1.1 (1.0-2.2) Diagnostic Imaging Diagnostic Imaging Results: positive Final report reviewed Assessment/Plan Problem List (1) MSSA bacteremia: Impression: Records reviewed from [facility] emergency room visit: 1 of 2 blood cultures grew MSSA. This was on Friday, the . He received a dose of Rocephin at that time. He was discharged on Augmentin. He returns today after a phone call stating the above. Continue cefazolin 2 g every 8 hours at this time. Repeat blood cultures ordered 06/26, no growth to date. Source is likely lung. Patient is not having any urinary symptoms at this time. Mediport with no erythema around the site, fluctuence, drainage. Echo done 05/11 does not show any valvular heart disease or any heart failure. If repeat blood cultures are positive, patient will need Mediport removal, as well as a MARIBEL. Patient will likely require 14-day course of IV antibiotics. Continue aggressive IV fluid resuscitation. (2) Sepsis: Impression: Leukopenia, as well as tachycardia. Management as above. Qualifiers: Sepsis acute organ dysfunction status: without acute organ dysfunction Sepsis type: methicillin susceptible Staphylococcus aureus Qualified Code(s): A 41.01 - Sepsis due to Methicillin susceptible Staphylococcus aureus (3) Paroxysmal atrial fibrillation with rapid ventricular response: Impression: Patient received 1 dose of IV metoprolol. Continue home oral metoprolol, Eliquis. I increased his metoprolol to 100mg BID from 50mg BID as he remained in RVR. He is fluctuating between 100-120 with even slight activity. 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. Continue IV fluid resuscitation, normal saline at 100 cc an hour. (4) Anemia: Impression: Likely due to chemotherapy side effects. Continue to monitor. No active bleeding noted at this time. Qualifiers: Anemia type: unspecified type Qualified Code(s): D64.9 - Anemia, unspecified (5) Hypokalemia: Impression: Improving. Due to decreased p.o. intake, continue repletion and trending. (6) Hyponatremia: Impression: Improving. Due to decreased p.o. intake, continue repletion and trending. (7) Lung cancer: Impression: Patient diagnosed with right-sided lung adenocarcinoma. Follows with Dr. Mejia, oncologist. Was previously receiving chemotherapy, but this was stopped about a week ago. Last radiation session was on Friday. Family has been told next steps are immunotherapy. He is very fatigued, restless. He was interested in a Hospice informational. I spoke with his oncologist Dr. Eddie Alexander (oncologist at [facility]). Dr. Mendez is states that his cancer treatment is actually of curative intent. He is optimistic in his treatment plan, and recommends further treatment at this time. He recommends a CT chest, abdomen, pelvis as well to assess for further metastasis. Qualifiers: Laterality: right Lung location: unspecified part of lung Qualified Code(s): C34.91 - Malignant neoplasm of unspecified part of right bronchus or lung
[2024-06-27] MEDS ORDERED: iohexoL-300 100 ML VIAL ONE (11:51)
[2024-06-27] MEDS: iohexoL-300 100 ML VIAL IVP ONE (12:41)
[2024-06-27] MEDS: SODIUM CHLORIDE FLUSH 0.9% 10 ML SYRINGE IVP PRN (13:55)
[2024-06-27] MEDS: ACETAMINOPHEN 325 MG TABLET PO PRN (15:42)
--- NOTE | 2024-06-27 16:25 | CT Report ---
PROCEDURE: CT Abdomen/Pelvis W INDICATIONS: sepsis CONTRAST: Omni 300 100ml TECHNIQUE: After the administration of intravenous contrast, a CT scan of the abdomen and pelvis was performed. Images were recorded and evaluated at appropriate window settings. Reformats: coronal and sagittal. For radiation dose reduction, the following was used: automated exposure control, adjustment of mA and/or kV according to patient size. COMPARISON: None. FINDINGS: Image quality: Diagnostic. Lower chest: Please see the accompanying chest CT report. Liver: No solid mass. Gallbladder: Layering gallstones are seen. No additional CT findings of cholecystitis are seen. Biliary tree: No intrahepatic or extrahepatic dilation, accounting for age. Spleen: No splenomegaly. Pancreas: No pancreatic ductal dilation. Adrenals: No adrenal nodule. Kidneys and ureters: No hydronephrosis. No renal cystic lesion which requires follow up. No solid mass. Stomach, bowel and peritoneum: No gastric or small bowel dilation. Mild generalized wall thickening and adjacent free fluid can be seen within the paracolic gutters. There is liquid stool seen within the colon, including within the rectum. No free air is seen. No abscess collection is seen. Lymph nodes: No central or retroperitoneal adenopathy. Vessels: No infrarenal aortic aneurysm. Patent portal vein. Atherosclerotic calcification is seen. PELVIS Reproductive organs: Unremarkable. Bladder: No abnormal wall thickening. Pelvic lymph nodes: No pelvic adenopathy by size criteria. Bones: No aggressive osseous abnormality. Generalized significant lumbar spine degenerative change is seen. Other: No significant ventral or inguinal hernia. IMPRESSION: Generalized thickening seen of the colon, with adjacent inflammatory change with free fluid within the paracolic gutters. There is liquid stool seen within the colon, including within the rectum. Please correlate with potential infectious and inflammatory causes of colitis. No findings of perforation or abscess can be seen. Additional findings: Gallstones Lumbar spine degenerative change Reviewed by: Sharif Mullen MD on 06/27/2024 3:24 PM AKDT Approved by: Sharif Mullen MD on 06/27/2024 3:24 PM AKDT Station ID: [id number]
--- NOTE | 2024-06-27 16:36 | CT Report ---
PROCEDURE: CT Chest W INDICATIONS: sepsis CONTRAST: Omni 300 100ml TECHNIQUE: After the administration of intravenous contrast, a CT scan of the chest was performed. Images were recorded and evaluated at appropriate window settings. Reformats: axial MIP of the chest, coronal and sagittal. For radiation dose reduction, the following was used: automated exposure control, adjustment of mA and/or kV according to patient size. COMPARISON: 03/02/2024. Correlation is made with the accompanying imaging. FINDINGS: Image quality: Diagnostic. Chest wall and lower neck: No thyroid nodule which requires sonographic follow up. No breast mass. No axillary or supraclavicular adenopathy by size. Lungs and pleura: The patient's known right upper lobe mass is again seen and measures 6.8 x 6.6 cm in greatest axial dimension. There is now a small amount of gas within the known mass. Significant surrounding inflammatory change is now seen. There is a small right-sided pleural effusion. Mediastinum: Heart size is normal. No pericardial effusion. No large vessel abnormality. Enlarged right perihilar and mediastinal lymph nodes are seen, with a precarinal lymph node measuring 2.4 x 2.3 cm in greatest axial dimension. At least moderate coronary calcification is seen. Bones: No aggressive osseous abnormality. Upper Abdomen: Please see the accompanying report. IMPRESSION: This patient has a known history of lung adenocarcinoma. The previously seen mass now demonstrates gas within it and demonstrates significant surrounding inflammatory change. Please consider necrosis with superinfection of the mass in this patient with history of sepsis. Enlarged mediastinal lymph nodes are again seen. Please consider short-term follow-up CT. Additional findings: At least moderate coronary artery calcification Note: Case discussed by telephone with Dr. Shelley at 4:32 PM [place] time on 06/27/2024. Reviewed by: Sharif Mullen MD on 06/27/2024 3:35 PM MALACHI Approved by: Sharif Mullen MD on 06/27/2024 3:35 PM MALACHI Station ID: [id number]
[2024-06-27] MEDS: guaiFENesin/CODEINE 5 ML UDC PO PRN (18:46)
[2024-06-27] MEDS: ZOLPIDEM 5 MG TABLET PO PRN (20:22)
[2024-06-28 03:07] LABS: ADENOVIRUS F 40/41 Not Detected (Not Detected); ASTROVIRUS Not Detected (Not Detected); C DIFFICILE TOXIN A/B Not Detected (Not Detected); CAMPYLOBACTER Not Detected (Not Detected); CRYPTOSPORIDIUM Not Detected (Not Detected); CYCLOSPORA CAYETANENSIS Not Detected (Not Detected); ENTAMOEBA HISTOLYTICA Not Detected (Not Detected); ENTEROAGGREGATIVE E COLI Not Detected (Not Detected); ENTEROPATHOGENIC E COLI Not Detected (Not Detected); ENTEROTOXIGENIC E COLI Not Detected (Not Detected); GIARDIA LAMBLIA Not Detected (Not Detected); NOROVIRUS GI/GII Not Detected (Not Detected); PLESIOMONAS SHIGELLOIDES Not Detected (Not Detected); ROTAVIRUS A Not Detected (Not Detected); SALMONELLA Not Detected (Not Detected); SAPOVIRUS Not Detected (Not Detected); SHIGA-TOXIN-PRODUCING E COLI Not Detected (Not Detected); SHIGELLA/ENTEROINVASIVE E COLI Not Detected (Not Detected); VIBRIO Not Detected (Not Detected); VIBRIO CHOLERAE Not Detected (Not Detected); YERSINIA ENTEROCOLITICA Not Detected (Not Detected)
[2024-06-28 05:32] LABS: HCT - HEMATOCRIT 23.3 % (42.0-52.0); HGB - HEMOGLOBIN 7.8 g/dL (14.0-18.0); MEAN CORPUSCULAR HEMOGLOBIN 30.7 pg (27.0-31.0); MEAN CORPUSCULAR HGB CONC 33.5 g/dL (32.0-36.0); MEAN CORPUSCULAR VOLUME 91.7 fL (80.0-94.0); MEAN PLATELET VOLUME 9.4 fL (7.4-11.4); RED BLOOD COUNT 2.54 10^6/uL (4.70-6.10); WHITE BLOOD COUNT 4.2 x10^3/uL (4.8-10.8)
[2024-06-28 05:47] LABS: CALCIUM 7.6 mg/dL (8.5-10.3); CREATININE 0.5 mg/dL (0.6-1.3); MAGNESIUM 1.8 mg/dL (1.7-2.3); POTASSIUM 2.8 mmol/L (3.5-4.5)
[2024-06-28] MEDS: METOPROLOL 5 MG/5 ML VIAL IVP PRN (06:09)
[2024-06-28] MEDS: POTASSIUM CHLOR 10 MEQ/100 ML 10 MEQ/100 ML BAG IV SCH ×2 (08:27→18:33)
[2024-06-28] MEDS: POTASSIUM CHLORIDE 20 MEQ TABLET PO ONE (10:36)
--- NOTE | 2024-06-28 11:04 | PROVIDER PROGRESS NOTE ---
Subjective Subjective Subjective: Patient is a 73-year-old male with a history of right lung adenocarcinoma who received chemotherapy and radiation a week ago who presents with fatigue, cough, shortness of breath. He was at a previous emergency room a few days prior to admission and they mel blood cultures. He was called to return to the ER, as 1 of [address] blood cultures [address]A. CT scan shows mass still present, but now has necrosis, superinfection of the mass. Patient still feels fatigued. He ate a little bit more this morning than he has been the last few days. No fevers or chills just extreme fatigue. He does not know any palpitations, chest pain. He is still coughing, persistently. Current Medications Current Medications Current Medications: Current Medications Generic Name Dose Route Start Last Admin Trade Name Freq PRN Reason Stop Dose Admin Acetaminophen 650 mg 06/25/24 16:46 06/27/24 15:42 Acetaminophen 325 Mg Tablet PO 650 mg Q4HR PRN Administration Pain 1 to 4, or Fever Hydrocodone Bitart/Acetaminophen 1 tab 06/25/24 16:46 06/27/24 12:52 Hydrocod/Acetam 5/325 Mg Tablet PO 1 tab Q4HR PRN Administration Pain 5 to 7 Apixaban 5 mg 06/25/24 21:00 06/28/24 08:27 Apixaban 5 Mg Tablet PO 5 mg BID STEPHIE Administration Atorvastatin Calcium 40 mg 06/25/24 21:00 06/27/24 20:23 Atorvastatin 40 Mg Tablet PO 40 mg QPM STEPHIE Administration Benzonatate 100 mg 06/27/24 00:28 06/28/24 08:27 Benzonatate 100 Mg Capsule PO 100 mg TID PRN Administration Cough Famotidine 20 mg 06/27/24 09:00 06/28/24 08:27 Famotidine 20 Mg Tablet PO 20 mg BID STEPHIE Administration Fluticasone Propionate 2 sprays 06/26/24 09:00 06/28/24 08:29 Fluticasone Nasal Flomot LEXIS 2 sprays DAILY STEPHIE Administration Guaifenesin/Codeine Phosphate 5 ml 06/27/24 16:15 06/28/24 06:51 Guaifenesin/Codeine 5 Ml Udc PO 5 ml Q6HR PRN Administration Cough Sodium Chloride 1,000 mls @ 100 mls/hr 06/25/24 17:00 06/28/24 05:27 Normal Saline 0.9% IV 100 mls/hr .Q10H STEPHIE Administration Potassium Chloride 10 meq in 100 mls @ 100 mls/hr 06/28/24 09:00 06/28/24 10:36 Potassium Chloride IV 06/28/24 12:59 100 mls/hr Q1H STEPHIE Administration Ampicillin Sodium/Sulbactam 100 mls @ 200 mls/hr 06/28/24 12:00 Sodium 3 gm/ Sodium Chloride IV Q6HR STEPHIE Metoprolol Tartrate 100 mg 06/26/24 09:00 06/28/24 08:27 Metoprolol Tartrate 50 Mg Tablet PO 100 mg BID STEPHIE Administration Metoprolol Tartrate 5 mg 06/28/24 03:13 06/28/24 06:09 Metoprolol 5 Mg/5 Ml Vial IVP 5 mg Q6H PRN Administration Tachycardia Ondansetron HCl 4 mg 06/25/24 16:46 Ondansetron Odt 4 Mg Tablet TL Q6HR PRN Nausea / Vomiting Ondansetron HCl 4 mg 06/25/24 16:46 Ondansetron 4 Mg/2 Ml Vial IVP Q6HR PRN Nausea / Vomiting Sodium Chloride 10 ml 06/25/24 16:46 06/28/24 05:40 Sodium Chloride Flush 0.9% 10 Ml Syringe IVP 10 ml PRN PRN Administration NEEDED PER PROVIDER ORDERS Sodium Chloride 10 ml 06/25/24 17:00 06/28/24 08:27 Sodium Chloride Flush 0.9% 10 Ml Syringe IVP 10 ml 0100,0900,1700 STEPHIE Administration Throat Lozenges 1 lozenge 06/27/24 00:28 06/28/24 08:27 Benzocaine/Menthol Lozenge MM 1 lozenge Q2HR PRN Administration Mouth Sore Pain Zolpidem Tartrate 5 mg 06/27/24 17:02 06/27/24 20:22 Zolpidem 5 Mg Tablet PO 5 mg QPM PRN Administration Insomnia Objective Vital Signs/Intake & Output Reviewed Vital Signs: Yes Vital Signs: Vital Signs x48h Temp Pulse Pulse Resp BP BP Pulse Ox 06/28/24 08:27 104 H 119/79 06/28/24 08:18 97.5 F L 89 20 126/75 97 06/28/24 07:02 93 118/74 05/12/25 07:02 93 118/74 06/28/24 06:45 104 H 109/73 06/28/24 06:35 84 118/82 06/28/24 06:30 110 H 109/77 06/28/24 06:25 86 117/75 06/28/24 06:20 96 115/82 06/28/24 06:09 121 H 121/83 06/28/24 05:00 98.6 F 94 20 119/78 96 06/28/24 03:12 97.7 F 132 H 20 134/91 H 96 Intake & Output: Intake & Output 06/25/24 06/26/24 06/27/24 06/28/24 23:59 23:59 23:59 23:59 Intake Total 2039 / 2039 4370 / 4370 4235 / 4235 1157 / 1157 Output Total 200 / 200 975 / 975 625 / 625 Balance 1840 / 1840 3395 / 3395 3610 / 3610 1157 / 1157 Weight (kg) 73 kg Objective General Appearance: positive No acute distress, Alert and Lethargic (fatigued) Eyes Bilateral: positive Normal inspection ENT: positive ENT inspection nml, Pharynx nml and No signs of dehydration Neck: positive Nml inspection, Thyroid nml and No JVD Respiratory: positive Chest non-tender, No respiratory distress, Breath sounds nml and Other (dimished breath sounds RUL) Cardiovascular: positive No murmur, No gallop, Irregularly irregular and Tachycardia Abdomen: positive Non-tender, No organomegaly, Nml bowel sounds and No distention Skin: positive Color nml Extremities: positive Non-tender and No pedal edema Neurologic/Psychiatric: positive Oriented x3, CN's nml (2-12) and Mood/affect nml Lab Results 06/28/24 05:06 06/28/24 05:06 Other Labs: Lab Results x24hrs 06/28/24 06/26/24 Range/Units 05:06 17:35 WBC 4.2 L (4.8-10.8) x10^3/uL RBC 2.54 L (4.70-6.10) 10^6/uL Hgb 7.8 L (14.0-18.0) g/dL Hct 23.3 L (42.0-52.0) % MCV 91.7 (80.0-94.0) fL MCH 30.7 (27.0-31.0) pg MCHC 33.5 (32.0-36.0) g/dL RDW 16.0 H (12.0-15.0) % Plt Count 212 (130-450) 10^3/uL MPV 9.4 (7.4-11.4) fL Sodium 135 (135-145) mmol/L Potassium 2.8 L (3.5-4.5) mmol/L Chloride 102 (101-111) mmol/L Carbon Dioxide 25 (21-32) mmol/L Anion Gap 8.0 (6-13) BUN 7 (6-20) mg/dL Creatinine 0.5 L (0.6-1.3) mg/dL Estimated GFR (MDRD) 163 (>89) Glucose 108 H (74-104) mg/dL Calcium 7.6 L (8.5-10.3) mg/dL Magnesium 1.8 (1.7-2.3) mg/dL Stl C. cayetanensis PCR Not Detected (Not Detected) Stool Rotavirus A PCR Not Detected (Not Detected) Stl Adenov F 40/41 PCR Not Detected (Not Detected) Stool Astrovirus (PCR) Not Detected (Not Detected) Stool Campylobacter PCR Not Detected (Not Detected) Stl C. diff Tox A/B PCR Not Detected (Not Detected) Stool Cryptosporidium PCR Not Detected (Not Detected) Stl Sh Tox Pr E STEC PCR Not Detected (Not Detected) Stool E coli O157 PCR Not applicable (Not Detected) Stl Enterotoxigenic E PCR Not Detected (Not Detected) Stool EPEC (PCR) Not Detected (Not Detected) Stl E. histolytica PCR Not Detected (Not Detected) Stool Giardia Lamblia PCR Not Detected (Not Detected) Stl P. shigelloides PCR Not Detected (Not Detected) Stool Salmonella PCR Not Detected (Not Detected) Stool Sapovirus (PCR) Not Detected (Not Detected) Stl Shigella/EIEC PCR Not Detected (Not Detected) St Y.enterocolitica PCR Not Detected (Not Detected) Stool Vibrio (PCR) Not Detected (Not Detected) Stl Vibrio cholerae PCR Not Detected (Not Detected) Stl Enteroaggr Ecoli PCR Not Detected (Not Detected) Stl Norovirus GI/GII PCR Not Detected (Not Detected) Diagnostic Imaging Diagnostic Imaging Results: positive Final report reviewed Assessment/Plan Problem List (1) MSSA bacteremia: Impression: Records reviewed from [facility] emergency room visit: 1 of 2 blood cultures grew MSSA. This was on Friday, the . He received a dose of Rocephin at that time. He was discharged on Augmentin. He returns today after a phone call stating the above. Echo done 05/11 does not show any valvular heart disease or any heart failure. If repeat blood cultures are positive, patient will need Mediport removal, as well as a MARIBEL. Continue aggressive IV fluid resuscitation. Have switched cefazolin to Unasyn to include further anaerobic coverage with this lung abscess today. (2) Lung abscess: Impression: CT scan of the chest does show right upper lobe mass, with the smaller of gas within the known mass, as well as significant surrounding inflammatory change. I discussed the findings with his oncologist, Dr. Eddie Alexander, this morning. We discussed need for possible transfer to a place with further specialties. I spoke with Dr. Yunior Rivera, supervisory civil engineer at [facility] (initially for possible transfer), who reviewed the CT scan. He recommended continued IV antibiotic treatment (okay with Unasyn), and repeat CT scan after the fact, as well as close follow up with a supervisory civil engineer after antibiotic course. He sees Dr. Reji Obregon for pulmonology - I will call him and keep him updated. Have switched cefazolin to Unasyn. Qualifiers: Laterality: right Lung location: upper lobe of lung Pulmonary abscess pneumonia presence: without pneumonia Qualified Code(s): J85.2 - Abscess of lung without pneumonia (3) Sepsis: Impression: Leukopenia, as well as tachycardia. Management as above. Improving. Qualifiers: Sepsis acute organ dysfunction status: without acute organ dysfunction Sepsis type: methicillin susceptible Staphylococcus aureus Qualified Code(s): A 41.01 - Sepsis due to Methicillin susceptible Staphylococcus aureus (4) Paroxysmal atrial fibrillation with rapid ventricular response: Impression: Patient received 1 dose of IV metoprolol. Continue home oral metoprolol, Eliquis. I increased his metoprolol to 100mg BID from 50mg BID as he remained in RVR. He is fluctuating between 100-120 with even slight activity. Will reach out to his chief of service, Dr. Choi, at [facility]. Continue IV fluid resuscitation, normal saline at 100 cc an hour. (5) Anemia: Impression: Likely due to chemotherapy side effects. Continue to monitor. No active bleeding noted at this time. Qualifiers: Anemia type: unspecified type Qualified Code(s): D64.9 - Anemia, unspecified (6) Hypokalemia: Impression: Due to decreased p.o. intake, continue repletion and trending. (7) Hyponatremia: Impression: Improving. Due to decreased p.o. intake, continue repletion and trending. (8) Lung cancer: Impression: Patient diagnosed with right-sided lung adenocarcinoma. Follows with Dr. Eddie Alexander, medical oncologist, and Dr. Mejia, Radiation Oncologist. Was previously receiving chemotherapy, but this was stopped about a week ago. Last radiation session was on Friday. Family has been told next steps are immunotherapy. He is very fatigued. He was interested in a Hospice informational. I spoke with his oncologist Dr. Eddie Alexander (oncologist at [facility]). Dr. Mendez is states that his cancer treatment is actually of curative intent. He is optimistic in his treatment plan, and recommends further treatment at this time. Qualifiers: Laterality: right Lung location: unspecified part of lung Qualified Code(s): C34.91 - Malignant neoplasm of unspecified part of right bronchus or lung
[2024-06-28] MEDS: AMPICILLIN/SULBACTAM 3 GM in SODIUM CHLORIDE 0.9% MINIBAG 100 ML IV SCH (11:59)
--- NOTE | 2024-06-28 16:23 | ECHO Report ---
Version: 1 Study ID: [id number] Adult Echocardiogram Report Name: GEOVANY REID Study Date: 06/28/2024, 11: 10 AM BP: 124 / 73 mmHg Patient Location: [facility] [place]^2202^01 HR: 90 bpm : 1950 (MM/DD/YYYY) Gender: Male Height: 70 in Age: 73 Years Weight: 160.937 lb Reason For Study: MSSA bacteremia History: CVA, AFIB, lung cancer, sepsis, Procedure: A complete two-dimensional transthoracic echocardiogram was performed (2D, M- mode, Doppler and color flow Doppler). The patient was comfortable and cooperative throughout the procedure. The study was done with the patient in the supine position, due to inability to lie on the left side. The underlying rhythm was atrial fibrillation. The underlying rhythm was atrial flutter. Interpretation Summary Global left ventricular systolic function is mildly decreased. There is mild global hypokinesis of the left ventricle. The visual left ventricular ejection fraction is estimated at 45 to 50%. There is mild to moderate mitral regurgitation. Calcification right coronary cusp vs. vegetation. Cannot exclude aortic valve vegetation. Moderate aortic regurgitation is present. The ascending aorta is mildly dilated. The diameter of the ascending aorta is 4.0 cm. Left Ventricle: The left ventricle is borderline dilated. There is normal left ventricular wall thickness. The visual left ventricular ejection fraction is estimated at 45 to 50%. Global left ventricular systolic function is mildly decreased. There is mild global hypokinesis of the left ventricle. Diastolic function could not be accurately assessed due to atrial fibrillation. Right Ventricle: The right ventricle is mildly to moderately dilated. The right ventricular systolic function is normal. Aortic Valve: The aortic valve is moderately thickened. The aortic valve is trileaflet. Calcification right coronary cusp vs. vegetation. Cannot exclude aortic valve vegetation. No hemodynamically significant valvular aortic stenosis. Moderate aortic regurgitation is present. Mitral Valve: The mitral valve leaflets appear thickened, but with normal motion. No evidence of mitral stenosis is seen. There is mild to moderate mitral regurgitation. Tricuspid Valve: The tricuspid valve is visually normal in structure and function. There is no tricuspid stenosis. Mild tricuspid regurgitation present. Pulmonic Valve: The pulmonic valve is not well seen. There is no pulmonic valvular stenosis. Trace pulmonic valvular regurgitation is present. Left Atrium: The left atrial volume indexed to body surface area is 66 ml/m2. This refers to the maximal volume measured prior to mitral valve opening. The left atrium is severely dilated. Right Atrium: The right atrium is severely dilated. The inferior vena cava is mildly dilated with mildly decreased collapse with sniff (estimated right atrial pressure 10-15mmHg). Atrial Septum: There is no Doppler evidence for an atrial septal defect. Aorta: The ascending aorta is mildly dilated. The diameter of the ascending aorta is 4.0 cm. The aortic root measures 3.7 cm in diameter. Pulmonary Artery: The pulmonary artery is not well seen. The right ventricular systolic pressure is 41mmHg. Pericardium/Pleural Space: There is no pericardial effusion. No pleural effusion is seen. Doppler Measurements & Calculations Ao max P.3 mmHg Ao V2 max: 175.1 cm/sec LV V1 max: 110.1 cm/sec LV V1 max P.9 mmHg PA max P.98 mmHg PA V2 max: 70.3 cm/sec RAP systole: 15.0 mmHg TR max P.5 mmHg TR max sav: 252.4 cm/sec MMode/2D Measurements & Calculations Ao root diam: 3.7 cm EDV(MOD-sp4): 122.2 ml EF (est.): 40.6 % ESV(MOD-sp4): 61.1 ml Heart Rate: 90.0 BPM Height (metric): 177.8 cm IVSd: 0.90 cm LAV(MOD-bp): 127.4 ml LAV(MOD-bp) Indexed: 66.9 ml/m² LAV(MOD-sp2): 140.9 ml LAV(MOD-sp4): 113.2 ml LVIDd: 5.9 cm LVIDs: 4.6 cm LVLd ap4: 8.3 cm LVLs ap4: 6.8 cm LVPWd: 0.94 cm RA A4Cs: 25.9 cm² RV Base: 4.0 cm Systolic Pressure: 124.0 mmHg Other Measurements & Calculations Ao root diam: 3.7 cm Ao V2 max: 175.1 cm/sec BMI: 23.1 kilograms/m² BSA: 1.90 m² BSA([facility]): 1.90 m² Diastolic Pressure: 73.0 mmHg EDV(MOD-sp4): 122.2 ml EDV(Teich): 175.5 ml EF (est.): 40.6 % EF(MOD-sp4): 50.0 % EF(Teich): 45.2 % ESV(MOD-sp4): 61.1 ml ESV(Teich): 96.2 ml FS: 22.9 % Heart Rate: 90.0 BPM Height (metric): 177.8 cm IVSd: 0.90 cm LAV(MOD-bp): 127.4 ml LAV(MOD-bp) Indexed: 66.9 ml/m² LAV(MOD-sp2): 140.9 ml LAV(MOD-sp4): 113.2 ml LV V1 max: 110.1 cm/sec LVIDd: 5.9 cm LVIDs: 4.6 cm LVLd ap4: 8.3 cm LVLs ap4: 6.8 cm LVPWd: 0.94 cm PA max P.98 mmHg PA V2 max: 70.3 cm/sec RA A4Cs: 25.9 cm² RAP systole: 15.0 mmHg RV Base: 4.0 cm RVSP(TR): 40.5 mmHg SV(MOD-sp4): 61.1 ml Systolic Pressure: 124.0 mmHg TR max P.5 mmHg TR max sav: 252.4 cm/sec TV max P.5 mmHg Weight (metric): 73.0 kg EDV(MOD-sp2): 146.1 ml EF Mod BP: 46.7 % ESV(MOD-sp2): 77.1 ml EF(MOD-sp2): 47.2 % EF(sp-el): 52.7 % MD Joan Solorio 06/28/2024, 4: 23 PM Ordering Physician: Zohra Shelley Referring Physician: John King Performed By: Kira Malone RDCS
--- NOTE | 2024-06-28 17:54 | Discharge Summary ---
"Discharge Summary Admit Date: 06/25/24 Discharge Date: 06/28/24 Discharging Provider: Dr. Zohra Shelley Primary Care Provider: Oncologist: Dr. Eddie Alexander Code Status: Do Not Attempt Resuscitation Discharge Facility Name: [facility] DIAGNOSES Admission Diagnoses: MSSA bacteremia Sepsis Paroxysmal atrial fibrillation with rapid ventricular response Anemia Hypokalemia Hyponatremia Lung cancer Discharge Diagnoses with Status of Each Condition: MSSA bacteremia Records reviewed from [facility] emergency room visit: 1 of 2 blood cultures grew MSSA. This was on Friday, the . He received a dose of Rocephin at that time. He was discharged on Augmentin. Have switched cefazolin to Unasyn to include further anaerobic coverage with this lung abscess today. Echo today showed possible aortic valve thickening, cannot rule out vegetation. Will need transfer for MARIBEL, cardiology and infectious disease follow-up. Lung abscessCT scan shows right upper lobe mass. Spoke with Yunior Rivera, chocolate finisher, does not require drainage at this time. Continune Unasyn. Spoke with his pulmonoligist, Dr. Obregon, was updated. Sepsisleukopenia, tachycardia. Management as above. Paroxysmal atrial fibrillation with RVRcontinue metoprolol 100 mg twice daily. Continue Eliquis. Anemiastable. Hypokalemiacontinue to replete. Hyponatremiaimproving. Lung cancerreceiving chemotherapy, radiation with Dr. Eddie Alexander. HPI History of Present Illness: Patient is a 73-year-old male with a history of recently diagnosed lung adenocarcinoma currently receiving chemotherapy and radiation who presents after [facility] stay. On Friday, patient presented to the emergency room at that time for fevers, chills, as well as a worsening productive cough. Blood cultures were drawn. Today, they received a call that they grew bacteria. They were advised to return to the ER. Records were reviewed1 out of 2 blood cultures grew MSSA. On Friday, he was discharged on Augmentin. He has been taking that since. However, he continues to have fevers. He also has a productive cough with some yellow to green sputum production. He states he has some pain with coughing across his chest. He does not feel his right heart racing. He has no chest pressure. He was previously on chemotherapy and radiation. He did not tolerate chemotherapy well. His oncologist is Dr. Mejia. This was stopped about a week ago. He does have a Mediport in place. He was receiving radiation daily for the last week. This was stopped a few days ago. He also was scheduled to have a MARIBEL done today, but he was unable to make the appointment. Besides the fever and cough, he also endorses a decreased appetite. His states that he has not been eating anything except for some scrambled eggs. He endorses some mild nausea. He also endorses diarrhea. CONSULTS | PROCEDURES Consultations: - Procedures: CT chest, CT abdomen/pelvis HOSPITAL COURSE Hospital Course: Patient is a 73-year-old male with a history of recently diagnosed lung adenocarcinoma currently receiving chemotherapy and radiation who presents after [facility] stay. On 06/23, patient presented to the emergency room at that time for fevers, chills, as well as a worsening productive cough. Blood cultures were drawn. They were advised to return to the ER. Records were reviewed1 out of 2 blood cultures grew MSSA. He was initially started on IV cefazolin. He had minimal improvement. CT chest was completed, and it did show some necrosis at the center, as well as some gas. Concern for abscess. Switched to Unasyn. His ECHO today then showed aortic valve thickening. Concern for vegetation. Spoke with cardiology, pulmonology at [facility], agreeable to transfer. Patient be transferred to care for further specialist workup including MARIBEL. His chocolate finisher, Dr. Monterroso, his oncologist, Dr. Alexander were all made aware of the above, and have been updated about the plan of care. ALLERGIES Allergies Allergy/AdvReac Type Severity Reaction Status Date / Time Sulfa (Sulfonamide Allergy Mild Nausea Verified 06/25/24 14:02 Antibiotics) MEDICATIONS Ambulatory Orders Medication Instructions Recorded Confirmed apixaban 5 mg tablet (Eliquis) 5 mg PO BID 30 days #60 tabs 03/03/24 06/25/24 metoprolol tartrate 50 mg tablet 50 mg PO BID 05/10/24 06/25/24 atorvastatin 40 mg tablet 40 mg PO QPM 30 days #30 tab s 05/11/24 06/25/24 triamcinolone acetonide 55 mcg 1 spray intranasal UMA Y PRN 06/26/24 06/26/24 nasal spray aerosol (Nasacort) allergy symptoms PHYSICAL EXAM AT DISCHARGE Vital Signs: Vital Signs x48h Temp Pulse Resp BP Pulse Ox 06/28/24 16:27 97.5 F L 79 20 127/79 97 06/28/24 12:05 97.5 F L 84 20 124/73 96 General Appearance: positive No acute distress and Alert; negative Anxious Eyes Bilateral: positive Normal inspection, PERRL and EOMI ENT: positive ENT inspection nml, Pharynx nml and No signs of dehydration Neck: positive Nml inspection, Thyroid nml and No JVD Respiratory: positive Chest non-tender, No respiratory distress and Rales Cardiovascular: positive Irregularly irregular and Tachycardia Peripheral Pulses: positive 2+ Abdomen: positive Non-tender, No organomegaly and No distention; negative Guarding Back: positive Nml inspection; negative CVA tenderness (R) or CVA tenderness (L) Skin: positive Color nml, No rash, Warm and Dry Extremities: positive Non-tender, Full ROM, Nml appearance and No pedal edema Neurologic/Psychiatric: positive Oriented x3, Motor nml and Mood/affect nml LABS 06/28/24 05:06 06/28/24 17:03 DIAGNOSTIC IMAGING Diagnostic Imaging Results: Final report reviewed SEPSIS Current Stage of Sepsis: Sepsis Possible source of Sepsis: Pulmonary FOLLOW UP Follow Up: Transfer to acute [facility]. TIME SPENT Time Spent in Discharge (Minutes): 75 Discharge Plan Discharge Patient Disposition: 02 Transfer Acute Care Hosp Condition: Serious Prescriptions: Continued Eliquis 5 mg Tablet 5 mg PO BID 30 Days Qty: 60 0RF metoprolol tartrate 50 mg tablet 50 mg PO BID Patient Comments: TAKE ONE TABLET BY MOUTH TWICE DAILY atorvastatin 40 mg Tablet 40 mg PO QPM 30 Days Qty: 30 0RF triamcinolone acetonide [Nasacort] 55 mcg aerosol,spray 1 spray intranasal DAILY PRN (Reason: allergy symptoms) Rx Instructions: administer into each nostril Activity Restrictions: Activity as Tolerated Diet: Cardiac Print Language: Italian Stand Alone Forms: PCP List"
[2024-06-28] MEDS: MIRTAZAPINE 15 MG TABLET PO SCH (21:51)
[2024-06-29] MEDS: METOPROLOL 5 MG/5 ML VIAL IVP SCH (01:49)
[2024-06-29 05:46] LABS: HCT - HEMATOCRIT 24.5 % (42.0-52.0); MEAN CORPUSCULAR HEMOGLOBIN 30.7 pg (27.0-31.0); MEAN CORPUSCULAR HGB CONC 32.7 g/dL (32.0-36.0); MEAN CORPUSCULAR VOLUME 93.9 fL (80.0-94.0); MEAN PLATELET VOLUME 9.5 fL (7.4-11.4); RED BLOOD COUNT 2.61 10^6/uL (4.70-6.10); RED CELL DISTRIBUTION WIDTH 16.5 % (12.0-15.0); WHITE BLOOD COUNT 5.2 x10^3/uL (4.8-10.8)
[2024-06-29 05:59] LABS: CALCIUM 7.7 mg/dL (8.5-10.3); CREATININE 0.5 mg/dL (0.6-1.3); MAGNESIUM 1.8 mg/dL (1.7-2.3); POTASSIUM 3.2 mmol/L (3.5-4.5)
--- NOTE | 2024-06-29 15:43 | PROVIDER PROGRESS NOTE ---
Subjective Prog Note Date Prog Note Date: 06/29/24 Prog Note Time: 08:35 Subjective Pt reports feeling: No change Subjective: Patient is a 73-year-old male with a history of right lung adenocarcinoma who received chemotherapy and radiation a week ago who presents with fatigue, cough, shortness of breath. He was at a previous emergency room a few days prior to admission and they mel blood cultures. He was called to return to the ER, as 1 of [address] cultures [address] CT scan shows mass still present, but now has necrosis, superinfection of the mass. Patient still feels fatigued. Current Medications Current Medications Current Medications: Current Medications Generic Name Dose Route Start Last Admin Trade Name Freq PRN Reason Stop Dose Admin Acetaminophen 650 mg 06/25/24 16:46 06/29/24 14:33 Acetaminophen 325 Mg Tablet PO 650 mg Q4HR PRN Administration Pain 1 to 4, or Fever Hydrocodone Bitart/Acetaminophen 1 tab 06/25/24 16:46 06/28/24 21:50 Hydrocod/Acetam 5/325 Mg Tablet PO 1 tab Q4HR PRN Administration Pain 5 to 7 Apixaban 5 mg 06/25/24 21:00 06/29/24 08:05 Apixaban 5 Mg Tablet PO 5 mg BID STEPHIE Administration Atorvastatin Calcium 40 mg 06/25/24 21:00 06/28/24 21:51 Atorvastatin 40 Mg Tablet PO 40 mg QPM STEPHIE Administration Benzonatate 100 mg 06/27/24 00:28 06/29/24 02:04 Benzonatate 100 Mg Capsule PO 100 mg TID PRN Administration Cough Famotidine 20 mg 06/27/24 09:00 06/29/24 08:05 Famotidine 20 Mg Tablet PO 20 mg BID STEPHIE Administration Fluticasone Propionate 2 sprays 06/26/24 09:00 06/29/24 08:07 Fluticasone Nasal [place] LEXIS 2 sprays DAILY STEPHIE Administration Guaifenesin/Codeine Phosphate 5 ml 06/27/24 16:15 06/29/24 13:50 Guaifenesin/Codeine 5 Ml Udc PO 5 ml Q6HR PRN Administration Cough Sodium Chloride 1,000 mls @ 100 mls/hr 06/25/24 17:00 06/29/24 14:22 Normal Saline 0.9% IV 100 mls/hr .Q10H STEPHIE Administration Ampicillin Sodium/Sulbactam 100 mls @ 200 mls/hr 06/28/24 12:00 06/29/24 11:55 Sodium 3 gm/ Sodium Chloride IV Infused Q6HR STEPHIE Infusion Metoprolol Tartrate 100 mg 06/26/24 09:00 06/29/24 08:06 Metoprolol Tartrate 50 Mg Tablet PO 100 mg BID STEPHIE Administration Metoprolol Tartrate 5 mg 06/28/24 03:13 06/29/24 06:10 Metoprolol 5 Mg/5 Ml Vial IVP 5 mg Q6H PRN Administration Tachycardia Metoprolol Tartrate 5 mg 06/29/24 02:00 06/29/24 01:49 Metoprolol 5 Mg/5 Ml Vial IVP 06/30/24 01:59 5 mg ONCE STEPHIE Administration Mirtazapine 15 mg 06/28/24 21:00 06/28/24 21:51 Mirtazapine 15 Mg Tablet PO 15 mg QPM STEPHIE Administration Ondansetron HCl 4 mg 06/25/24 16:46 Ondansetron Odt 4 Mg Tablet TL Q6HR PRN Nausea / Vomiting Ondansetron HCl 4 mg 06/25/24 16:46 Ondansetron 4 Mg/2 Ml Vial IVP Q6HR PRN Nausea / Vomiting Sodium Chloride 10 ml 06/25/24 16:46 06/28/24 05:40 Sodium Chloride Flush 0.9% 10 Ml Syringe IVP 10 ml PRN PRN Administration NEEDED PER PROVIDER ORDERS Sodium Chloride 10 ml 06/25/24 17:00 06/29/24 10:09 Sodium Chloride Flush 0.9% 10 Ml Syringe IVP Not Given 0100,0900,1700 STEPHIE Throat Lozenges 1 lozenge 06/27/24 00:28 06/29/24 02:04 Benzocaine/Menthol Lozenge MM 1 lozenge Q2HR PRN Administration Mouth Sore Pain Zolpidem Tartrate 5 mg 06/27/24 17:02 06/27/24 20:22 Zolpidem 5 Mg Tablet PO 5 mg QPM PRN Administration Insomnia Objective Vital Signs/Intake & Output Reviewed Vital Signs: Yes Vital Signs: Vital Signs x48h Temp Pulse Pulse Resp BP BP Pulse Ox 06/29/24 11:55 36.9 C 110 H 18 139/77 H 96 06/29/24 08:06 105 H 129/84 06/29/24 08:05 36.6 C 106 H 18 129/84 97 Intake & Output: Intake & Output 06/26/24 06/27/24 06/28/24 06/29/24 23:59 23:59 23:59 23:59 Intake Total 4370 / 4370 4235 / 4235 4159 / 4159 2519 / 2519 Output Total 975 / 975 625 / 625 2175 / 2175 Balance 3395 / 3395 3610 / 3610 4159 / 4159 344 / 344 Objective General Appearance: positive No acute distress, Alert and Lethargic (fatigued) Eyes Bilateral: positive Normal inspection ENT: positive ENT inspection nml, Pharynx nml and No signs of dehydration Neck: positive Nml inspection, Thyroid nml and No JVD Respiratory: positive Chest non-tender, No respiratory distress, Breath sounds nml and Other (dimished breath sounds RUL) Cardiovascular: positive No murmur, No gallop, Irregularly irregular and Tachycardia Abdomen: positive Non-tender, No organomegaly, Nml bowel sounds and No distention Skin: positive Color nml Extremities: positive Non-tender and No pedal edema Neurologic/Psychiatric: positive Oriented x3, CN's nml (2-12) and Mood/affect nml Lab Results 06/29/24 05:00 06/29/24 05:00 Other Labs: Lab Results x24hrs 06/29/24 06/28/24 Range/Units 05:00 17:03 WBC 5.2 (4.8-10.8) x10^3/uL RBC 2.61 L (4.70-6.10) 10^6/uL Hgb 8.0 L (14.0-18.0) g/dL Hct 24.5 L (42.0-52.0) % MCV 93.9 (80.0-94.0) fL MCH 30.7 (27.0-31.0) pg MCHC 32.7 (32.0-36.0) g/dL RDW 16.5 H (12.0-15.0) % Plt Count 223 (130-450) 10^3/uL MPV 9.5 (7.4-11.4) fL Sodium 138 (135-145) mmol/L Potassium 3.2 L 2.9 L (3.5-4.5) mmol/L Chloride 104 (101-111) mmol/L Carbon Dioxide 27 (21-32) mmol/L Anion Gap 7.0 (6-13) BUN 6 (6-20) mg/dL Creatinine 0.5 L (0.6-1.3) mg/dL Estimated GFR (MDRD) 163 (>89) Glucose 121 H (74-104) mg/dL Calcium 7.7 L (8.5-10.3) mg/dL Magnesium 1.8 (1.7-2.3) mg/dL Diagnostic Imaging Diagnostic Imaging Results: positive Final report reviewed Sepsis Event Note (H) Evaluation Current Stage of Sepsis: Sepsis Possible source of Sepsis: positive Pulmonary Assessment/Plan Problem List (1) MSSA bacteremia: Impression: Records reviewed from [facility] emergency room visit: 1 of 2 blood cultures grew MSSA. This was on Friday, the . He received a dose of Rocephin at that time. He was discharged on Augmentin. He returns today after a phone call stating the above. Echo from 06/28/2024 shows moderate aortic regurgitation which was not present on prior echocardiogram. Comment is made that cannot exclude aortic valve vegetation. If repeat blood cultures are positive, patient will need Mediport removal, as well as a MARIBEL. Continue aggressive IV fluid resuscitation. Have switched cefazolin to Unasyn to include further anaerobic coverage * Given the findings on the echocardiogram there was some concern about possibility of vegetation and as such attempt was made on 06/28/2024 to transfer the patient to [place] for MARIBEL, cardiology consultation, and infectious disease * I have discussed this plan with the patient this morning and asked him whether doing so would be in line with his goals of care and he was unable to provide me an answer. Seems to have some difficulty grasping the breath of information regardless of my attempts to slow down and repeat the information * He agreed that it would be best to discuss this with his and I was hoping to meet with her today but she has not come to the best of my knowledge, and I have called her phone number with no answer. Will continue to attempt to communicate with patient and family regarding the next steps (2) Lung abscess: Impression: Per Dr Shelley "CT scan of the chest does show right upper lobe mass, with the smaller of gas within the known mass, as well as significant surrounding inflammatory change. I discussed the findings with his oncologist, Dr. Eddie Alexander, this morning. We discussed need for possible transfer to a place with further specialties. I spoke with Dr. Yunior Rivera, high school mathematics teacher at [facility] (initially for possible transfer), who reviewed the CT scan. He recommended continued IV antibiotic treatment (okay with Unasyn), and repeat CT scan after the fact, as well as close follow up with a high school mathematics teacher after antibiotic course. He sees Dr. Reji Obregon for pulmonology - I will call him and keep him updated. Have switched cefazolin to Unasyn." Qualifiers: Pulmonary abscess pneumonia presence: without pneumonia Laterality: r ight Lung location: upper lobe of lung Qualified Code(s): J85.2 - Abscess of lung without pneumonia (3) Sepsis: Impression: Leukopenia, as well as tachycardia. Management as above. Improving. Qualifiers: Sepsis type: methicillin susceptible Staphylococcus aureus Sepsis acute organ dysfunction status: without acute organ dysfunction Qualified Code(s): A 41.01 - Sepsis due to Methicillin susceptible Staphylococcus aureus (4) Paroxysmal atrial fibrillation with rapid ventricular response: Impression: * Resolved * Continue home oral metoprolol, Eliquis. * I increased his metoprolol to 100mg BID from 50mg BID as he remained in RVR. He is fluctuating between 100-120 with even slight activity. 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 (5) Anemia: Impression: * Likely due to chemotherapy * No active bleeding noted at this time. * Continue to monitor Qualifiers: Anemia type: unspecified type Qualified Code(s): D64.9 - Anemia, unspecified (6) Hypokalemia: Impression: * Due to decreased p.o. intake, continue repletion and trending. (7) Hyponatremia: Impression: * Improving. Due to decreased p.o. intake, continue repletion and trending. (8) Lung cancer: Impression: * Patient diagnosed with right-sided lung adenocarcinoma. * Follows with Dr. Eddie Alexander, medical oncologist, and Dr. Mejia, Radiation Oncologist. * Was previously receiving chemotherapy, but this was stopped about a week prior to admit. Last radiation session was about 06/23/24. * Family has been told next steps are immunotherapy. * He is very fatigued. * He was interested in a Hospice informational. I spoke with his oncologist Dr. Eddie Alexander (oncologist at [facility]). Dr. Mendez states that his cancer treatment is actually of curative intent. * He is optimistic in his treatment plan, and recommends further treatment at this time. Qualifiers: Laterality: right Lung location: unspecified part of lung Qualified Code(s): C34.91 - Malignant neoplasm of unspecified part of right bronchus or lung
[2024-06-29] MEDS: diltiaZEM INJ 5 MG/ML VIAL IVP ONE ×2 (17:28→19:11)
[2024-06-29 18:10] VITALS: TEMP 97.7; O2SAT 94
[2024-06-29 19:14] VITALS: BP 122/85
[2024-06-30] MEDS ORDERED: POTASSIUM CHLORIDE 20 MEQ/15 ML UDC PO SCH (08:00)
== END 2024-06-29 19:15 | disposition short-term general hospital (02) | DRG 871 ==
LOC: ED 13:56 → MS2 16:20
PROVIDERS: ADMIT Internal Medicine; ATTEND Internal Medicine
DX: E87.1 Hypo-osmolality and hyponatremia; R53.1 Weakness; D64.81 Anemia due to antineoplastic chemotherapy; R63.0 Anorexia; C34.91 Malignant neoplasm of unspecified part of right bronchus or lung; C34.90 Malignant neoplasm of unspecified part of unspecified bronchus or lung; J85.2 Abscess of lung without pneumonia; J85.0 Gangrene and necrosis of lung; Z66 Do not resuscitate; Z87.891 Personal history of nicotine dependence; Z79.01 Long term (current) use of anticoagulants; I48.0 Paroxysmal atrial fibrillation; I08.0 Rheumatic disorders of both mitral and aortic valves; R00.0 Tachycardia, unspecified; R78.81 Bacteremia; R05.8 Other specified cough; Z68.22 Body mass index [BMI] 22.0-22.9, adult; E87.6 Hypokalemia; B95.61 Methicillin susceptible Staphylococcus aureus infection as the cause of diseases classified elsewhere; A41.01 Sepsis due to Methicillin susceptible Staphylococcus aureus